=== PATIENT | female | born 1980 | race African-American/Black ===

== ENCOUNTER 2022-05-26 11:01 | Emergency (ER) | payer SELFPAY ==
--- NOTE | ~2022-05-26 | CT_ITS ---
EXAMINATION: CT abdomen pelvis w con INDICATION: Right lower quadrant pain, fever and chills TECHNIQUE: Computed tomographic images of the abdomen and pelvis were obtained after the administrati on of 100 cc of Omnipaque 350 intravenous contrast. The dose-length product (DLP) was 1122.92 mGy-cm. Automated exposure control and iterative reconstruction technique were employed. COMPARISON: None available FINDINGS: Minimal dependent atelectasis is present in the lung bases. The heart size is normal. There is a 10 mm cyst in the left hepatic lobe. The spleen, pancreas, gallbladder, and adrenal glands are normal. The kidneys are unremarkable. There is a complex cystic mass of the right adnexa measuring ap proximately 8.4 x 7.3 cm. A portion of the mass has a tubular configuration. There is inflammatory ch rona surrounding the mass and a small amount of adjacent fluid. There is marked enlargement of the ut erus which contains multiple fibroids. No pathologically enlarged abdominal or pelvic lymph nodes are identified. There is no free intraperitoneal gas or evidence of bowel obstruction. There is an umbil ical hernia containing fat. IMPRESSION: 1. Cystic right adnexal mass with apparent hydrosalpinx. Findings are consistent with tubo-ovarian ab scess. SUPERVISOR TAN ROOM evaluation is recommended. These findings and recommendations were discussed with Dexter Lynn APRN in the Emergency Department at 1539 hours on 05/26/2022. 2. Markedly enlarged uterus containing multiple fibroids. Reviewed, dictated and finalized at location A. IMPRESSION: 1. Cystic right adnexal mass with apparent hydrosalpinx. Findings are consisten t with tubo-ovarian abscess. SUPERVISOR TAN ROOM evaluation is recommended. These findings and recommendations were discussed with Dexter Lynn APRN in the Emergency Depa rtment at 1539 hours on 05/26/2022. 2. Markedly enlarged uterus containing multiple fibroids.
--- NOTE | ~2022-05-26 | XR_ITS ---
EXAMINATION: XR chest 2V 05/26/2022 12:31 INDICATION: Fever and cough PROCEDURE: 2 view chest COMPARISON: 03/07/2019 FINDINGS: The lungs are clear. The cardiomediastinal silhouette is within normal limits. There are no pleural effusions. There is no pneumothorax suspected. IMPRESSION: 1: NO ACUTE CARDIOPULMONARY DISEASE. Reviewed, dictated and finalized at location B.
[2022-05-26 11:19] VITALS: BP 142/63; PULSE 100; RESP 22; TEMP 37.9; O2SAT 100
--- NOTE | 2022-05-26 11:27 | ED.URI ---
HPI - URI/Sore Throat General Chief Complaint: Upper Respiratory Infection Stated Complaint: fatigue, body pain Time Seen by Provider: 05/26/22 11:15 History of Present Illness HPI Narrative: 42-year-old female history of anemia and thyroid disease presents emergency room for evaluation of low-grade fever body aches headache for 4 days. Patient states she is intermittently been taking Tylenol and ibuprofen for her body aches, which have temporarily resolved her symptoms. Patient denies shortness of breath, difficulty breathing, chest pain Related Data Allergies Allergy/AdvReac Type Severity Reaction Status Date / Time chloroquine Allergy Unknown Itching Unverified 05/26/22 11:34 Review of Systems Review of Systems: CONSTITUTIONAL: Reports fever EYES: Denies visual changes, redness, or discharge. ENT: Denies rhinorrhea, congestion, sore throat, or otalgia. CARDIOVASCULAR: Denies chest pain, palpitations, or edema. RESPIRATORY: Denies cough or dyspnea. GASTROINTESTINAL: Denies abdominal pain, nausea, vomiting, or diarrhea. GENITOURINARY: Denies dysuria or hematuria. SKIN: Denies rash or itching. MUSCULOSKELETAL: Reports body aches NEUROLOGIC: Denies headache, numbness, dizziness, or weakness. PSYCHIATRIC: Denies anxiety or depression. Exam Narrative: GENERAL: Ill-appearing, well-nourished, no physical limitations, and in no acute distress. HEAD: Normocephalic, atraumatic. EYES: Conjunctivae normal, PERRLA and EOMI. ENT: External nose normal, Nares clear, no rhinorrhea or epistaxis. Mucous membranes moist. Oropharynx without tonsillar hypertrophy exudate or other lesions. External ears normal, bilateral TMs normal bilaterally NECK: Supple. CHEST: Clear to auscultation. No respiratory distress. No wheezes rales or rhonchi. No tenderness. HEART: Regular rate and rhythm. No murmur heard. Normal peripheral pulses. ABD: Right lower quadrant tenderness. Negative heel strike. Positive psoas sign. EXTREMITIES: Normal range of motion. No edema. No clubbing or cyanosis SKIN: Warm, dry, no rash. No noted wounds NEURO: No focal deficits. Alert and oriented x3. MAEW. CN's II-XI intact bilaterally, normal gait PSYCH: Cooperative. Normal mood and affect. Course Course Emergency Course: 1600: Patient refused pelvic examination, stating she would rather be seen by her ICU TECH for this and she was also on her menstrual cycle. Vital Signs Vital signs: Vital Signs Temperature 37.9 C H 05/26/22 11:19 Pulse Rate 100 05/26/22 11:19 Respiratory Rate 22 H 05/26/22 11:19 Blood Pressure 142/63 H 05/26/22 11:19 Pulse Oximetry 100 05/26/22 11:19 Oxygen Delivery Room Air 05/26/22 11:19 Temperature 37.1 C 05/26/22 13:12 Pulse Rate 78 05/26/22 13:12 Respiratory Rate 18 05/26/22 13:12 Blood Pressure 138/62 05/26/22 13:12 Pulse Oximetry 99 05/26/22 13:12 Oxygen Delivery Room Air 05/26/22 11:19 MDM - URI/Sore Throat MDM Narrative Medical decision making narrative: 42-year-old female presented the emergency room with body aches and low-grade fever and some upper respiratory symptoms. On evaluation patient demonstrated pain to the right lower quadrant. CT scan showed a large tubo-ovarian abscess. On further review, patient states that she recently had a pelvic ultrasound as part of her initial work-up for IV therapy. I discussed the case with Dr. Rangel, he recommends 1 dose of IV antibiotics here and then to go home with antibiotics with close follow-up to the ICU TECH. Discussed treatment plan with patient, she was agreeable. Lab Data Result diagrams: 05/26/22 11:44 05/26/22 14:36 Labs: Lab Results 05/26/22 05/26/22 05/26/22 Range/Units 11:26 11:44 14:25 WBC 15.6 H (4.5-10.0) K/mm3 RBC 4.17 L (4.2-5.4) M/mm3 Hgb 8.9 L (12.0-15.0) g/dL Hct 30.4 L (37.0-47.0) % MCV 72.9 L (80-100) fl MCH 21.3 L (26-34) pg MCHC 29.3 L (32-36) g/dl R
[2022-05-26] MEDS: ACETAMINOPHEN 500 MG TABLET 1000 MG PO (11:32)
[2022-05-26 11:57] LABS: Basophils Percent Auto 0.2 % (0.2-1.2); Hematocrit 30.4 % (37.0-47.0); Hemoglobin 8.9 g/dL (12.0-15.0); Immature Granulocyte Absolute 0.08 K/mm3 (0.00-0.031); Immature Granulocyte Percent A 0.5 % (0-0.5); Lymphocytes Absolute Auto 1.53 K/mm3 (0.9-3.2); Lymphocytes Percent Auto 9.8 % (18.3-44.2); Mean Corpuscular HGB Conc 29.3 g/dl (32-36); Mean Corpuscular Hemoglobin 21.3 pg (26-34); Mean Corpuscular Volume 72.9 fl (80-100); Mean Platelet Volume 10.1 fl (7.4-10.4); Monocytes Absolute Auto 1.2 K/mm3 (0.1-0.6); Monocytes Percent Auto 7.8 % (2.6-8.5); Neutrophils Absolute Auto 12.7 K/mm3 (1.3-6.7); Neutrophils Percent Auto 81.7 % (45.5-73.1); Platelet Count Result 243 k/mm3 (150-375); Red Blood Count 4.17 M/mm3 (4.2-5.4); Red Cell Distribution Width 27.5 % (11.5-14.5); White Blood Count 15.6 K/mm3 (4.5-10.0)
[2022-05-26 12:10] LABS: SARS-CoV-2 RNA PCR Negative
[2022-05-26 12:17] LABS: Anisocytosis 2+ (NORMAL); Hypochromasia 2+ (NORMAL); Platelet Estimate Adequate (Adequate)
[2022-05-26 12:18] LABS: Poikilocytosis 1+ (NORMAL)
[2022-05-26 13:12] VITALS: BP 138/62; PULSE 78; RESP 18; TEMP 37.1; O2SAT 99
[2022-05-26] MEDS: SODIUM CHLORIDE 0.9% IV 1,000 ML 999 ML IV CONT (13:16)
[2022-05-26] MEDS: KETOROLAC 30 MG/ML VIAL (*BKC) IV PUSH (13:16)
[2022-05-26 14:44] LABS: Add Urine Microscopic? YES; Appearance Urine Clear (Clear); Bilirubin Urine Negative (Negative); Blood Urine 3+ (Negative); Glucose Urine UA Negative (Negative); Ketones Urine Negative (Negative); Leukocyte Esterase Ur 3+ LEU/UL (Negative); Nitrate Urine Negative (Negative); Protein Urine 2+ mg/dL (Negative); Specific Grav Ur <= 1.005 (1.001-1.035); Urobilinogen Urine 0.2 mg/dL (<2.0)
[2022-05-26 14:56] LABS: Alanine Aminotransferase 13 U/L (6-35); Albumin Level 4.3 g/dL (3.5-5.1); Alkaline Phosphatase 74 U/L (38-126); Anion Gap 11 mmol/L (8-16); Aspartate Amino Transferase 25 U/L (14-36); Bilirubin,Total 0.5 mg/dL (0.2-1.3); Blood Urea Nitrogen 5 mg/dL (7-17); Calcium 8.3 mg/dL (8.4-10.2); Carbon Dioxide 25 mmol/L (22-30); Chloride 102 mmol/L (98-107); Estimated CRCL calculation 118 ml/min; Estimated Glomerular Filt Rate > 60; Glucose 127 mg/dL (65-110); Potassium 3.2 mmol/L (3.4-5.0); Sodium 138 mmol/L (137-145)
[2022-05-26 14:57] LABS: Bacteria Urine 1+ /hpf; Mucus Urine Rare /lpf; RBC Urine >75 /hpf (0-2); WBC Urine >75 /hpf
[2022-05-26 15:01] LABS: Color Urine Light Red (Yellow)
[2022-05-26] MEDS: HYDROmorphone HCL INJ (*CRX) 1 MG/ML SYR 0.5 MG IV PUSH (16:02)
[2022-05-26 17:04] VITALS: BP 126/78; PULSE 77; RESP 18; TEMP 36.8; O2SAT 99
== END 2022-05-26 17:05 | disposition home or self-care (01) ==
PROVIDERS: Emergency Provider Nurse Practitioner Family
DX: N70.93 Salpingitis and oophoritis, unspecified (principal); Z20.822 Contact with and (suspected) exposure to COVID-19; D64.9 Anemia, unspecified; E07.9 Disorder of thyroid, unspecified; D25.9 Leiomyoma of uterus, unspecified
CPT/HCPCS: 36415; 71046; 74177; 80053; 81001; 81025; 83605; 85025; 87040; 87086; 96365; 96375; 99284; A9270; C9803; J0696; J1170; J1885; J7030; Q9967; U0003; U0005

== ENCOUNTER 2022-05-27 12:51 | Inpatient (IN) | payer SELFPAY ==
[2022-05-27] VITALS (8 sets, daily range): BP systolic 126–151; BP diastolic 67–81; PULSE 80–128; RESP 16–41; TEMP 37.2–38.8; O2SAT 97–100; BMI 34.1
[2022-05-27] MEDS: MORPHINE SULFATE (*CRX) 4 MG/ML INJ IV PUSH ×3 (13:28→21:50)
--- NOTE | 2022-05-27 13:28 | ED.ABDPAIN ---
HPI - Abdominal Pain General Chief Complaint: Abdominal Pain Stated Complaint: abd pain Time Seen by Provider: 05/27/22 13:07 History of Present Illness HPI narrative: 42-year-old female diagnosed with tubo-ovarian abscess return to the emergency room for ongoing abdominal pain and fever. Yesterday patient presented with abdominal pain no fever diagnosed with an ovarian abscess. Was given IV Rocephin and sent home with oral antibiotics and pain control. Patient states that she followed up with her ENT SURGEON this morning and was told that she needed to be admitted for IV antibiotics and pain control. Was told that there were no beds at [facility] so was instructed to come back to [place] for admission. Patient states she continues to have right lower quadrant abdominal pain and low-grade fevers. Related Data Allergies Allergy/AdvReac Type Severity Reaction Status Date / Time chloroquine Allergy Unknown Itching Verified 05/27/22 13:23 Review of Systems Review of Systems: CONSTITUTIONAL: Reports fever EYES: Denies visual changes, redness, or discharge. ENT: Denies rhinorrhea, congestion, sore throat, or otalgia. CARDIOVASCULAR: Denies chest pain, palpitations, or edema. RESPIRATORY: Denies cough or dyspnea. GASTROINTESTINAL: Reports abdominal pain GENITOURINARY: Denies dysuria or hematuria. SKIN: Denies rash or itching. MUSCULOSKELETAL: Denies back pain, joint pain, or myalgia. NEUROLOGIC: Denies headache, numbness, dizziness, or weakness. PSYCHIATRIC: Denies anxiety or depression. Exam Narrative: GENERAL: Well-appearing, well-nourished, no physical limitations, and in no acute distress. HEAD: Normocephalic, atraumatic. EYES: Conjunctivae normal, PERRLA and EOMI. CHEST: Clear to auscultation. No respiratory distress. No wheezes rales or rhonchi. No tenderness. HEART: Regular rate and rhythm. No murmur heard. Normal peripheral pulses. ABDOMEN: Soft, right lower quadrant tenderness, nondistended, normal active bowel sounds. BACK: No CVA tenderness EXTREMITIES: Normal range of motion. No edema. No clubbing or cyanosis SKIN: Warm, dry, no rash. No noted wounds NEURO: No focal deficits. Alert and oriented x3. MAEW. CN's II-XI intact bilaterally, normal gait PSYCH: Cooperative. Normal mood and affect. Course Vital Signs Vital signs: Vital Signs Temperature 38.2 C H 05/27/22 12:53 Pulse Rate 80 05/27/22 12:53 Respiratory Rate 16 05/27/22 12:53 Blood Pressure 151/81 H 05/27/22 12:53 Pulse Oximetry 100 05/27/22 12:53 Oxygen Delivery Room Air 05/27/22 12:53 Temperature 37.2 C 05/27/22 14:15 Pulse Rate 128 H 05/27/22 14:15 Respiratory Rate 41 H 05/27/22 14:15 Blood Pressure 134/67 05/27/22 14:15 Pulse Oximetry 100 05/27/22 14:15 Oxygen Delivery Room Air 05/27/22 12:53 MDM - Abdominal Pain Lab Data Result diagrams: 05/27/22 13:37 05/27/22 13:37 Discharge Plan Discharge Clinical Impression: Abscess, ovarian Patient Disposition: Still a Patient Condition: Stable Time of Disposition: 14:50
[2022-05-27] MEDS: ONDANSETRON INJ 4 MG/2 ML VIAL IV PUSH (13:29)
[2022-05-27] MEDS: SODIUM CHLORIDE 0.9% IV 1,000 ML 999 ML IV CONT (13:29)
[2022-05-27 13:46] LABS: Basophils Percent Auto 0.3 % (0.2-1.2); Eosinophils Absolute Auto 0.1 K/mm3 (0-0.3); Eosinophils Percent Auto 0.4 % (0-4.4); Hematocrit 28.2 % (37.0-47.0); Hemoglobin 8.3 g/dL (12.0-15.0); Immature Granulocyte Absolute 0.09 K/mm3 (0.00-0.031); Immature Granulocyte Percent A 0.7 % (0-0.5); Lymphocytes Absolute Auto 1.49 K/mm3 (0.9-3.2); Lymphocytes Percent Auto 11.2 % (18.3-44.2); Mean Corpuscular HGB Conc 29.4 g/dl (32-36); Mean Corpuscular Hemoglobin 21.7 pg (26-34); Mean Corpuscular Volume 73.6 fl (80-100); Mean Platelet Volume 10.3 fl (7.4-10.4); Monocytes Absolute Auto 0.9 K/mm3 (0.1-0.6); Neutrophils Absolute Auto 10.7 K/mm3 (1.3-6.7); Neutrophils Percent Auto 80.4 % (45.5-73.1); Platelet Count Result 233 k/mm3 (150-375); Red Blood Count 3.83 M/mm3 (4.2-5.4); Red Cell Distribution Width 27.4 % (11.5-14.5); White Blood Count 13.3 K/mm3 (4.5-10.0)
[2022-05-27 14:01] LABS: Alanine Aminotransferase 12 U/L (6-35); Albumin Level 3.9 g/dL (3.5-5.1); Alkaline Phosphatase 71 U/L (38-126); Anion Gap 8 mmol/L (8-16); Aspartate Amino Transferase 16 U/L (14-36); Bilirubin,Total 0.4 mg/dL (0.2-1.3); Blood Urea Nitrogen 4 mg/dL (7-17); Calcium 8.7 mg/dL (8.4-10.2); Carbon Dioxide 27 mmol/L (22-30); Chloride 97 mmol/L (98-107); Estimated CRCL calculation 104 ml/min; Estimated Glomerular Filt Rate > 60; Glucose 133 mg/dL (65-110); Potassium 3.2 mmol/L (3.4-5.0); Sodium 132 mmol/L (137-145)
[2022-05-27 14:09] LABS: Hypochromasia 1+ (NORMAL); Microcytosis 1+ (NORMAL); Platelet Estimate Adequate (Adequate)
[2022-05-27] MEDS: metroNIDAZOLE 250 MG TABLET 500 MG PO (14:51)
--- NOTE | 2022-05-27 15:38 | ADMGEN ---
This patient, Paulette Hess, was admitted to [facility] Surg Room 328-01. Patient/family oriented to hospital policies and general routines including ID bracelet, bed and alarms, visiting hours, pain management, procedures, bathroom and other care routines, personal items, smoking policy, room service/diet, and visiting hours. Information on how to activate the Rapid Response Team has been discussed. Patient/Family are encouraged to report perceived risks to care and to ask questions if they do not understand what they are told or what they should do.
[2022-05-27] MEDS: ACETAMINOPHEN 500 MG TABLET 1000 MG PO (21:39)
[2022-05-27] MEDS: DOXYCYCLINE 100 MG/NS 100 ML 100 MG/100 ML BAG IVPB (21:39)
[2022-05-27] MEDS: DEXTROSE 5%/0.45% SOD CHL 1,000 ML 100 ML IV CONT (21:40)
[2022-05-28] VITALS: PULSE 118; TEMP 36.4
[2022-05-28 05:02] VITALS: BP 133/71; PULSE 108; RESP 16; TEMP 36.6; O2SAT 99
[2022-05-28] MEDS: metroNIDAZOLE 500 MG/ISO 100ML 500 MG/100 ML BAG 100 MG IVPB ×2 (05:09→17:10)
[2022-05-28] MEDS: ACETAMINOPHEN 500 MG TABLET 1000 MG PO ×3 (05:09→17:18)
[2022-05-28] MEDS: DEXTROSE 5%/0.45% SOD CHL 1,000 ML 100 ML IV CONT ×2 (05:10→08:41)
[2022-05-28] MEDS: MORPHINE SULFATE (*CRX) 4 MG/ML INJ IV PUSH (05:16)
[2022-05-28 08:21] LABS: Hematocrit 25.8 % (37.0-47.0); Hemoglobin 7.8 g/dL (12.0-15.0); Immature Platelet Fraction Pct 4.6 % (0.9-11.2); Mean Corpuscular HGB Conc 30.2 g/dl (32-36); Mean Corpuscular Hemoglobin 21.8 pg (26-34); Mean Corpuscular Volume 72.1 fl (80-100); Mean Platelet Volume 10.8 fl (7.4-10.4); Platelet Count Result 216 k/mm3 (150-375); Red Blood Count 3.58 M/mm3 (4.2-5.4); Red Cell Distribution Width 27.3 % (11.5-14.5); White Blood Count 12.1 K/mm3 (4.5-10.0)
[2022-05-28 08:58] VITALS: PULSE 110; O2SAT 96
[2022-05-28] MEDS: DOXYCYCLINE 100 MG/NS 100 ML 100 MG/100 ML BAG IVPB ×2 (11:36→21:37)
--- NOTE | 2022-05-28 12:29 | PM.IMHP ---
H&P: HPI History of Present Illness Date/Time: 05/28/22 12:29 Chief Complaint: Pain and fever Narrative: 42 y/o nulligravida with LMP 05/21/22. She is seeing Dr. Viramontes at [facility] and Dr. Michel at [facility]. She was about to start an IVF cycle. She had a saline infusion ultrasound about three weeks ago, and has had gradually worsening pain since then. She developed more severe pain 2 days ago and has felt feverish. She was seen in the ED here on 05/26, found to be almost febrile (100.2F) withi a WBC 15.6K, and an 8 cm likely TOA on CT. She was felt to be stable and was given a dose of Rocephin, then sent home on Keflex, doxycycline and Flagyl. She went to see her BABATUNDE specialist yesterday. They told her they'd like to admit her, but that there was a waiting list of 40 people ahead of her at [facility]. She came back to [place] and was admitted through the ED. Her WBC yesterday had improved to 13.3K. She says she has had intermittent pain as well as a headache. The morphine / tylenol regimen has given intermittent relief. Last bm was 3 days ago. No new sexual partners. She had declined a pelvic exam on admission in the ED. Review of Systems Review of Systems: All systems reviewed & are unremarkable except as noted in HPI and below PMFSH Past Medical History Medical History Infertility Uterine fibroid Surgical History Surgical History (Updated 05/28/22 @ 12:38 by Hemanth Rangel MD) H/O: myomectomy History of appendectomy History of laparoscopy History of laparotomy Social History Social History Smoking status: Never smoker Alcohol intake: never Substance use: never Spiritual care concerns: No Meds Home Medications and Allergies Home Medications Medication Instructions Recorded Confirmed Type doxycycline monohydrate 100 mg 100 mg PO DAILY 14 days #14 caps 05/26/22 05/27/22 Rx capsule hydrocodone 5 mg-acetaminophen 325 1 tablet PO Q8H PRN pain #14 tabs 05/26/22 05/27/22 Rx mg tablet metronidazole 500 mg tablet 500 mg PO Q12H 14 days #28 tabs 05/26/22 05/27/22 Rx B Complex w-Vit C 1,000 mg PO DAILY 05/27/22 05/27/22 History calcium carb, gluconate-vit D3 2,000 mcg BYMOUTH DAILY 05/27/22 05/27/22 History folic acid 800 mg PO DAILY 05/27/22 05/27/22 History levothyroxine 25 mcg tablet 25 mcg PO DAILY 05/27/22 05/27/22 History Allergies Allergy/AdvReac Type Severity Reaction Status Date / Time chloroquine Allergy Unknown Itching Verified 05/27/22 15:11 shellfish derived Allergy Jittery Verified 05/27/22 15:12 Vital Signs Vital Signs - 24 hr 05/27/22 12:53 05/27/22 13:14 05/27/22 14:00 Temperature 38.2 C H Pulse Rate 80 127 H 123 H Respiratory Rate 16 38 H 23 H Blood Pressure 151/81 H 140/76 142/80 H Pulse Oximetry 100 100 100 Oxygen Delivery Room Air 05/27/22 13:40 05/27/22 14:15 05/27/22 14:54 Temperature 37.2 C 38.8 C H Pulse Rate 126 H 128 H 128 H Respiratory Rate 24 H 41 H 38 H Blood Pressure 134/67 135/77 Pulse Oximetry 100 100 100 Oxygen Delivery 05/27/22 17:15 05/27/22 21:53 05/28/22 00:00 Temperature 37.4 C 38.6 C H 36.4 C Pulse Rate 128 H 118 H Respiratory Rate 20 Blood Pressure 126/75 Pulse Oximetry 97 Oxygen Delivery 05/28/22 05:02 05/28/22 08:37 05/28/22 08:58 Temperature 36.6 C Pulse Rate 108 H 110 H Respiratory Rate 16 Blood Pressure 133/71 Pulse Oximetry 99 96 Oxygen Delivery Room Air Room Air Exam Const: Orientation/consciousness: patient oriented x3 Other: Well-developed, well-nourished female in no acute distress. Neck: Thyroid: thyroid normal Lymphatic: no lymphadenopathy noted (in neck, axilla or inguinal nodes) Resp: Effort & Inspection: normal respiratory effort Auscultation: clear to auscultation bilaterally Cardio: Rate: regular rate Rhythm: regular rhythm Heart sounds: S1 nor
[2022-05-28 14:00] VITALS: BP 132/86; PULSE 108; RESP 16; TEMP 36.4; O2SAT 99
[2022-05-28] MEDS: POLYSACCHARIDE IRON COMPLEX 150 MG CAPSULE PO (17:11)
[2022-05-28] MEDS: IBUPROFEN 600 MG TABLET PO (21:37)
[2022-05-28 22:00] VITALS: BP 125/86; PULSE 106; RESP 18; TEMP 36.6; O2SAT 100
[2022-05-29] MEDS: DEXTROSE 5%/0.45% SOD CHL 1,000 ML 100 ML IV CONT (05:26)
[2022-05-29] MEDS: metroNIDAZOLE 500 MG/ISO 100ML 500 MG/100 ML BAG 100 MG IVPB (05:50)
[2022-05-29] MEDS: ACETAMINOPHEN 500 MG TABLET 1000 MG PO (05:50)
[2022-05-29 06:00] VITALS: BP 118/64; PULSE 94; RESP 16; TEMP 36.6; O2SAT 100
[2022-05-29 07:13] LABS: Basophils Percent Auto 0.4 % (0.2-1.2); Eosinophils Absolute Auto 0.1 K/mm3 (0-0.3); Hematocrit 25.6 % (37.0-47.0); Hemoglobin 7.4 g/dL (12.0-15.0); Immature Granulocyte Absolute 0.04 K/mm3 (0.00-0.031); Immature Granulocyte Percent A 0.5 % (0-0.5); Immature Platelet Fraction Pct 4.4 % (0.9-11.2); Lymphocytes Absolute Auto 1.15 K/mm3 (0.9-3.2); Lymphocytes Percent Auto 13.9 % (18.3-44.2); Mean Corpuscular HGB Conc 28.9 g/dl (32-36); Mean Corpuscular Volume 72.5 fl (80-100); Mean Platelet Volume 10.1 fl (7.4-10.4); Monocytes Absolute Auto 0.7 K/mm3 (0.1-0.6); Monocytes Percent Auto 8.5 % (2.6-8.5); Neutrophils Absolute Auto 6.3 K/mm3 (1.3-6.7); Neutrophils Percent Auto 75.7 % (45.5-73.1); Platelet Count Result 237 k/mm3 (150-375); Red Blood Count 3.53 M/mm3 (4.2-5.4); Red Cell Distribution Width 27.6 % (11.5-14.5); White Blood Count 8.3 K/mm3 (4.5-10.0)
[2022-05-29] MEDS: POLYSACCHARIDE IRON COMPLEX 150 MG CAPSULE PO (08:15)
[2022-05-29 08:29] LABS: Anisocytosis 1+ (NORMAL); Hypochromasia 1+ (NORMAL); Ovalocytes 1+ (NORMAL); Platelet Estimate Adequate (Adequate)
--- NOTE | 2022-05-29 09:34 | PM.GYNPNOP ---
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 She is afebrile, pain is decreasing, and WBC has normalized. P: Home to finish a total of 14 days of antibiotics. Fe supplementation and pain control with Percocet. F/u with Dr. Viramontes in 1-2 weeks, or with me in 2 weeks if she prefers. Time Spent With Patient Time with patient: less than 15 minutes RETURNED TELEPHONE EQUIPMENT APPRAISER- PN:Subj Post-Op Subjective Date/time seen: 05/29/22 09:34 Interval history: She feels much better today. No fevers. Pain still present, but improved. She would like to clarify that she did not decline a pelvic exam in the ED. She says she was told the exam might be less helpful since she was bleeding. She passed a couple blood clots yesterday and received a dose of TXA, but has had no bleeding since. She had a bm yesterday. Exam Narrative: AVSS I/O OK ABD soft, much less tender. No guarding or rebound tenderness. EXT nontender RETURNED TELEPHONE EQUIPMENT APPRAISER - PN: Obj Data Vital Signs Vital Signs: Vital Signs - 24 hr 05/28/22 14:00 05/28/22 22:00 05/29/22 06:00 Temperature 36.4 C L 36.6 C 36.6 C Pulse Rate 108 H 106 H 94 Respiratory Rate 16 18 16 Blood Pressure 132/86 125/86 118/64 Pulse Oximetry 99 100 100 Oxygen Delivery 05/29/22 08:00 Temperature Pulse Rate Respiratory Rate Blood Pressure Pulse Oximetry Oxygen Delivery Room Air Intake/Output Intake/Output: Intake & Output 05/26/22 05/27/22 05/28/22 05/29/22 23:59 23:59 23:59 23:59 Intake Total 1310 7130 200 Balance 1310 7130 200 Meds/Results Medications: Active Medications Generic Name Dose Route Start Last Admin Trade Name Freq PRN Reason Stop Dose Admin Acetaminophen 1,000 mg 05/27/22 21:09 05/29/22 05:50 Acetaminophen 500 Mg Tablet PO 1,000 mg Q6H PRN Administration Mild Pain (1-3) or Fever Bisacodyl 10 mg 05/28/22 12:45 Bisacodyl 10 Mg Suppository RECTAL QAM PRN Constipation Famotidine 20 mg 05/27/22 21:12 Famotidine 20 Mg Tablet PO BID PRN Heartburn Ceftriaxone Sodium/Dextrose 1 gm in 50 mls @ 100 mls/hr 05/28/22 14:00 05/28/22 13:40 Rocephin 1 Gm/D5w 50 Ml IVPB Infused Q24H GAYE Infusion Metronidazole 500 mg in 100 mls @ 100 mls/hr 05/28/22 06:00 05/29/22 05:50 Flagyl 500 Mg/Iso Soln 100 Ml IVPB 100 mls/hr Q12H GAYE Administration Doxycycline Hyclate 100 mg in 100 mls @ 100 mls/hr 05/27/22 22:00 05/28/22 21:37 Vibramycin 100 Mg/Ns 100 Ml IVPB 100 mls/hr Q12H GAYE Administration Dextrose/Sodium Chloride 1,000 mls @ 100 mls/hr 05/27/22 21:15 05/29/22 05:26 Dextrose 5% Sodium Chloride 0.45% IV CONT 100 mls/hr .Q10H GAYE Administration Ibuprofen 600 mg 05/28/22 12:43 05/28/22 21:37 Ibuprofen 600 Mg Tablet PO 600 mg Q6H PRN Administration Cramping Ondansetron HCl 4 mg 05/27/22 13:24 Ondansetron Inj 4 Mg/2 Ml Vial IV PUSH Q4H PRN Nausea Oxycodone/Acetaminophen 1 tablet 05/28/22 12:43 Oxycodone/Acetaminophen (*Crx) 5-325 Mg Tablet PO Q4-6H PRN Pain Rated 6 or Greater Polysaccharide Iron Complex 150 mg 05/28/22 17:00 05/29/22 08:15 Polysaccharide Iron Complex 150 Mg Capsule PO 150 mg BIDWM GAYE Administration Labs CBC & Chem 7: 05/29/22 06:21 05/27/22 13:37 Labs: Laboratory Results - last 24 hr 05/29/22 06:21 WBC 8.3 RBC 3.53 L Hgb 7.4 L Hct 25.6 L MCV 72.5 L MCH 21.0 L MCHC 28.9 L RDW 27.6 H Plt Count 237 MPV 10.1 Immature Gran % (Auto) 0.5 Neut % (Auto) 75.7 H Lymph % (Auto) 13.9 L Gilmer % (Auto) 8.5 Eos % (Auto) 1.0 Baso % (Auto) 0.4 Lymph # (Auto) 1.15 Gilmer # (Auto) 0.7 H Eos # (Auto) 0.1 Baso # (Auto) 0.0 Abs Immat Gran (auto) 0.04 H Absolute Neuts (auto) 6.3 Absolute Nucleated RBC 0.0 Nucleated RBC % 0.0 P
[2022-05-29] MEDS: DOXYCYCLINE 100 MG/NS 100 ML 100 MG/100 ML BAG IVPB (10:05)
--- NOTE | 2022-06-23 11:43 | P.DS_ITS ---
DS: Admitting Diagnosis Discharge Date 05/29/22 Admitting Diagnosis Right sided tuboovarian abscess DS: Discharge Diagnosis Discharge Diagnosis (1) Tubo-ovarian abscess: Code(s): N70.93 - Salpingitis and oophoritis, unspecified Status: Acute DS: Summary Hospital Course Hospital Course: Admitted to the hospital for analgesics and IV antibiotics. Pain improved, temp improved, WBC normalized, and she was sent home to finish out an antibiotic course. Discharge Plan Discharge Attending physician on discharge: Hemanth Rangel Discharging Clinician: Hemanth Rangel Patient Disposition: Home, Self-Care Activity: pelvic rest Diet: regular Discharge Instructions: Call or return if temperature above 100.4? F, increased abdominal pain, increased vaginal bleeding or any new problems. Stand Alone Forms: General Discharge Information Follow-up/Referrals: Hemanth Rangel MD [Physician] - 2 Weeks (See Dr. Viramontes or Dr. Michel in 1-2 weeks; or see me in 2 weeks if preferred.) Discharge Medications: New cephalexin 500 mg capsule 500 mg PO Q12H 10 Days Qty: 20 0RF Niferex (Sumalate-Quatrefolic) 150 mg iron- 60 mg-1 mg tablet 1 tablet PO DAILY Qty: 30 0RF oxycodone-acetaminophen [Percocet] 5-325 mg tablet 1 - 2 tablet PO Q6H PRN (Reason: pain) Qty: 30 0RF Continued metronidazole 500 mg tablet 500 mg PO Q12H 14 Days Qty: 28 0RF doxycycline monohydrate 100 mg capsule 100 mg PO DAILY 14 Days Qty: 14 0RF levothyroxine 25 mcg tablet 25 mcg PO DAILY B Complex w-Vit C 1,000 mg PO DAILY folic acid 800 mg PO DAILY calcium carb, gluconate-vit D3 2,000 mcg BYMOUTH DAILY Discontinued hydrocodone-acetaminophen 5-325 mg tablet 1 tablet PO Q8H PRN (Reason: pain) Qty: 14 0RF Date of admission: 05/28/22 15:59 Primary Care Provider: PHYSICIAN,CLEAN ENERGY POLICY ANALYST Admitting Provider: Hemanth Rangel Attending physician on admission: Hemanth Rangel Condition: Stable
== END 2022-05-29 12:16 | disposition home or self-care (01) | DRG 531 ==
LOC: ANHED 13:30 → ANH3MEDSUR 14:16
PROVIDERS: Admitting Provider Obstetrics & Gynecology; Emergency Provider Nurse Practitioner Family; Visit Provider Obstetrics & Gynecology
DX: N70.03 Acute salpingitis and oophoritis (principal); T50.3X5A Adverse effect of electrolytic, caloric and water-balance agents, initial encounter; Z90.49 Acquired absence of other specified parts of digestive tract
CPT/HCPCS: 36415; 80053; 83605; 85025; 85027; 85055; 96361; 96365; 96367; 96375; 96376; 99285; A9270; G0378; J0696; J2270; J2405; J7030

== ENCOUNTER 2023-12-05 18:24 | Emergency (ER) | payer OTHER, SELFPAY ==
[2023-12-05 18:27] VITALS: BP 144/78; PULSE 99; RESP 18; TEMP 37.3; O2SAT 100
[2023-12-05 19:13] LABS: Influenza A QL RT-PCR Negative (Negative); Influenza B QL RT-PCR Negative (Negative); RSV RNA, RT-PCR Negative (Negative); SARS-CoV-2 RNA PCR Positive (Negative)
--- NOTE | 2023-12-05 20:29 | ED.URI ---
HPI - URI/Sore Throat General Chief Complaint: Upper Respiratory Infection Stated Complaint: h/a. body aches, nasal congestion Time Seen by Provider: 12/05/23 20:05 History of Present Illness HPI Narrative: Patient is a 43-year-old female presenting with headache, body aches, nasal congestion. States that her has been recently tested positive for COVID-19. For the last several days she has had diffuse body aches. States that her bones feel like they hurt all over. No nausea or vomiting. No SOB or CP. Mild cough. No leg swelling. Related Data Home Medications Medication Instructions Recorded Confirmed B Complex w-Vit C 1,000 mg PO DAILY 05/27/22 05/27/22 calcium carb, gluconate-vit D3 2,000 mcg BYMOUTH DAILY 05/27/22 05/27/22 folic acid 800 mg PO DAILY 05/27/22 05/27/22 levothyroxine 25 mcg tablet 25 mcg PO DAILY 05/27/22 05/27/22 Allergies Allergy/AdvReac Type Severity Reaction Status Date / Time chloroquine Allergy Unknown Itching Verified 12/05/23 18:25 shellfish derived Allergy Jittery Verified 12/05/23 18:25 Review of Systems Review of Systems: All systems reviewed & are unremarkable except as noted in HPI and below PMFSH Past Medical History Medical History Infertility Uterine fibroid Surgical History Surgical History H/O: myomectomy History of appendectomy History of laparoscopy History of laparotomy Social History Social History Smoking status: Never smoker Alcohol intake: never Substance use: never Spiritual care concerns: No Exam Narrative: GENERAL: Nontoxic, no acute distress, pleasant and cooperative HEAD: Normocephalic, atraumatic. EYES: PERRLA and EOMI. ENT: +nasal congestion NECK: Supple. CHEST: Clear to auscultation. No respiratory distress. HEART: Regular rate and rhythm EXTREMITIES: Normal range of motion. No edema. SKIN: Warm, dry, no rash. NEURO: No focal deficits. Alert and oriented x3. PSYCH: Normal mood and affect. Course Vital Signs Vital signs: Vital Signs Temperature 99.1 F 12/05/23 18:27 Pulse Rate 99 12/05/23 18:27 Respiratory Rate 18 12/05/23 18:27 Blood Pressure 144/78 H 12/05/23 18:27 Pulse Oximetry 100 12/05/23 18:27 Temperature 99.1 F 12/05/23 18:27 Pulse Rate 99 12/05/23 18:27 Respiratory Rate 18 12/05/23 18:27 Blood Pressure 144/78 H 12/05/23 18:27 Pulse Oximetry 100 12/05/23 18:27 Oxygen Delivery Room Air 12/05/23 20:42 MDM - URI/Sore Throat MDM Narrative Medical decision making narrative: 43-year-old female presenting with body aches, headache, nasal congestion. Vitals are within normal limits. Exam remarkable for the above. Patient is positive for COVID-19. Feel she is safe for outpatient management. Advised Tylenol and ibuprofen for pain and fevers. Discussed appropriate supportive care and PCP follow-up. Appropriate return precautions given. Patient is agreeable this plan. Discharged in stable condition. Differential Diagnosis Differential diagnosis: Likely upper respiratory infection, viral infection and influenza Medical Records Attestation: I reviewed the patient's medical records. Lab Data Attestation: I reviewed the patient's lab results. Labs: Lab Results 12/05/23 Range/Units 18:32 Influenza A (RT-PCR) Negative (Negative) Influenza B (RT-PCR) Negative (Negative) RSV (RT-PCR) Negative (Negative) SARS-CoV-2 RNA (RT-PCR) Positive A (Negative) Critical Care Time Critical Care Time Critical Care Time: No Discharge Plan Discharge Clinical Impression: COVID-19 Patient Disposition: Home, Self-Care Condition: Stable Instructions: Antibiotic Form, How to Recover from COVID-19 at Home (ED) Additional Instructions: You tested positive for COVID-19 t
[2023-12-05] MEDS: IBUPROFEN 600 MG TABLET PO (20:43)
[2023-12-05] MEDS: ACETAMINOPHEN 500 MG TABLET 1000 MG PO (20:43)
== END 2023-12-05 20:45 | disposition home or self-care (01) ==
LOC: ANHED 20:50
PROVIDERS: Emergency Medicine; Emergency Provider Emergency Medicine
DX: U07.1 COVID-19 (principal)
CPT/HCPCS: 87637; 99283; A9270

== ENCOUNTER 2024-02-21 22:26 | Emergency (ER) | payer OTHER, SELFPAY ==
--- NOTE | ~2024-02-21 | CT_ITS ---
CT of the Abdomen and Pelvis: Indication: Abdominal pain Technique: 2.5 mm axial scans were obtained through the abdomen and pelvis following intravenous adm inistration of 100 cc of Omnipaque 350. Dose reduction technique was used on this scan by utilizing a utomated exposure control and iterative reconstruction technique. The dose-length product (DLP) was 8 00.17 mGy-cm. COMPARISON: 05/26/2022 Findings: Scans through the lung bases are unremarkable. The liver, spleen, pancreas, gallbladder, adrenals and kidneys are within normal limits. No evidence of aortic aneurysm. No lymphadenopathy. No bowel obstruction or bowel wall thickening. There is no evidence to suggest acute appendicitis. Images through the pelvis were performed. Urinary bladder unremarkable. Markedly enlarged multi fibro id uterus is present, measuring approximately 16.5 x 11.3 x 15.1 cm in overall extent. There are prob ably 2 ovarian cysts present in the left ovary, measuring measuring 3.8 cm and 2.9 cm in size respect ively. No ascites. Impression: Enlarged multi fibroid uterus, as detailed above. 3.8 cm and 2.9 cm left ovarian cyst. Reviewed, dictated and finalized at location . Impression: Enlarged multi fibroid uterus, as detailed above. 3.8 cm and 2.9 cm left ovaria n cyst.
[2024-02-21 22:45] VITALS: BP 125/75; PULSE 84; RESP 18; TEMP 36.6; O2SAT 100
[2024-02-22 01:59] LABS: Appearance Urine Clear (Clear); Bilirubin Urine Negative (Negative); Blood Urine Negative (Negative); Color Urine Yellow (Yellow); Glucose Urine UA Negative (Negative); Ketones Urine Negative (Negative); Leukocyte Esterase Ur Negative LEU/UL (Negative); Nitrate Urine Negative (Negative); Protein Urine Negative (Negative); Specific Grav Ur 1.005 (1.001-1.035); Urobilinogen Urine 0.2 mg/dL (<2.0); pH Urine 6.5 (5.0-9.0)
[2024-02-22 02:01] LABS: Add Urine Microscopic? NO
[2024-02-22] MEDS: KETOROLAC 15 MG/ML VIAL (*BKC) IV PUSH (02:03)
[2024-02-22 02:20] LABS: Alanine Aminotransferase 17 U/L (6-35); Albumin Level 4.8 g/dL (3.5-5.1); Alkaline Phosphatase 71 U/L (38-126); Anion Gap 8 mmol/L (4-12); Aspartate Amino Transferase 28 U/L (14-36); Bilirubin,Total 0.5 mg/dL (0.2-1.3); Blood Urea Nitrogen 10 mg/dL (7-17); Calcium 10.4 mg/dL (8.4-10.2); Carbon Dioxide 25 mmol/L (22-30); Chloride 105 mmol/L (98-107); Estimated CRCL calculation 129 ml/min; Estimated Glomerular Filt Rate > 60; Glucose 89 mg/dL (65-110); Lipase 72 U/L (23-300); Potassium 4.3 mmol/L (3.4-5.0); Sodium 138 mmol/L (137-145)
[2024-02-22 02:42] LABS: Basophils Percent Auto 0.4 % (0.2-1.2); Eosinophils Absolute Auto 0.2 K/mm3 (0-0.3); Eosinophils Percent Auto 2.1 % (0-4.4); Hematocrit 36.4 % (37.0-47.0); Hemoglobin 11.2 g/dL (12.0-15.0); Immature Granulocyte Absolute 0.02 K/mm3 (0.00-0.031); Immature Granulocyte Percent A 0.2 % (0-0.5); Lymphocytes Absolute Auto 2.57 K/mm3 (0.9-3.2); Lymphocytes Percent Auto 31.9 % (18.3-44.2); Mean Corpuscular HGB Conc 30.8 g/dl (32-36); Mean Corpuscular Hemoglobin 26.7 pg (26-34); Mean Corpuscular Volume 86.7 fl (80-100); Monocytes Absolute Auto 0.6 K/mm3 (0.1-0.6); Monocytes Percent Auto 7.6 % (2.6-8.5); Neutrophils Absolute Auto 4.7 K/mm3 (1.3-6.7); Neutrophils Percent Auto 57.8 % (45.5-73.1); Platelet Count Result 237 k/mm3 (150-375); Red Cell Distribution Width 14.5 % (11.5-14.5); White Blood Count 8.1 K/mm3 (4.5-10.0)
[2024-02-22 02:51] VITALS: BP 125/73; PULSE 88; RESP 17; O2SAT 100
[2024-02-22 04:17] VITALS: BP 123/78; PULSE 88; RESP 16; O2SAT 100
--- NOTE | 2024-02-22 04:52 | ED.GENADULT ---
HPI - General Adult General Chief complaint: Abdominal Pain Stated complaint: abd pain Time Seen by Provider: 02/22/24 01:03 History of Present Illness HPI narrative: This is a 43-year-old female presenting ED with a chief complaint of abdominal pain. Patient been fasting throughout the day for jainism reasons. She then developed severe pain in her right upper quadrant. It was a sharp stabbing pain. Nonradiating. She has experienced pain like this in the past but not this severe. She has never sought medical attention for it. She denies fevers chills nausea vomiting or diarrhea. She still has a gallbladder. Patient has a history of fibroids. Related Data Home Medications Medication Instructions Recorded Confirmed B Complex w-Vit C 1,000 mg PO DAILY 05/27/22 05/27/22 calcium carb, gluconate-vit D3 2,000 mcg BYMOUTH DAILY 05/27/22 05/27/22 folic acid 800 mg PO DAILY 05/27/22 05/27/22 levothyroxine 25 mcg tablet 25 mcg PO DAILY 05/27/22 05/27/22 Allergies Allergy/AdvReac Type Severity Reaction Status Date / Time chloroquine Allergy Unknown Itching Verified 02/22/24 01:44 shellfish derived Allergy Jittery Verified 02/22/24 01:44 PMF Past Medical History Medical History Infertility Uterine fibroid Surgical History Surgical History H/O: myomectomy History of appendectomy History of laparoscopy History of laparotomy Social History Social History Smoking status: Never smoker Alcohol intake: never Substance use: never Spiritual care concerns: No Exam Narrative: APPEARANCE: No apparent distress. Head: atraumatic. EYES: EOMI, NOSE: Atraumatic NECK: Trachea midline RESPIRATORY: No increased rate of breathing CARDIOVASCULAR: RRR, ABDOMINAL: Palpable mass in the patient's lower abdomen, the rest the abdomen is soft nontender no guarding or rebound MUSCULOSKELETAl: No obvious deformities NEURO: Alert. Moving 4/4 extremities SKIN:: Warm, dry. Normal color PSYCHIATRIC: Normal affect Course Vital Signs Vital signs: Vital Signs Temperature 98 F 02/21/24 22:45 Pulse Rate 84 02/21/24 22:45 Respiratory Rate 18 02/21/24 22:45 Blood Pressure 125/75 02/21/24 22:45 Pulse Oximetry 100 02/21/24 22:45 Oxygen Delivery Room Air 02/21/24 22:45 Temperature 98 F 02/21/24 22:45 Pulse Rate 76 02/22/24 06:38 Respiratory Rate 16 02/22/24 06:38 Blood Pressure 112/77 02/22/24 06:38 Pulse Oximetry 100 02/22/24 06:38 Oxygen Delivery Room Air 02/21/24 22:45 Medical Decision Making MDM Narrative Medical decision making narrative: -Course: 43-year-old female presenting with right upper quadrant abdominal pain. Laboratory studies within normal limits. CT abdomen pelvis showed a large fibroid uterus but no gallbladder findings. On re-evaluation patient is resting comfortably. She has been pain-free for most of her stay. Patient will be discharged with the presumptive diagnosis of biliary colic. Patient given referrals to surgery, OBGYN and primary care. -DDX includes but is not limited to: Gastritis, biliary colic, colitis, uterine cramps, ovarian cyst -Independent interpretation of studies: labs reviewed within normal limits. Urine not indicative infection -Interventions: Toradol -Shared decision making / Disposition: discharged Vital Signs Vital Signs: Vital Signs Temperature 98 F 02/21/24 22:45 Pulse Rate 84 02/21/24 22:45 Respiratory Rate 18 02/21/24 22:45 Blood Pressure 125/75 02/21/24 22:45 Pulse Oximetry 100 02/21/24 22:45 Oxygen Delivery Room Air 02/21/24 22:45 Temperature 98 F 02/21/24 22:45 Pulse Rate 76 02/22/24 06:38 Respiratory Rate 16 02/22/24 06:38 Blood Pressure 112/77 02/22/24 06:38 Pulse Oximetry 100 02/22/24 06:38 Ox
[2024-02-22 05:54] VITALS: BP 119/81; PULSE 86; RESP 17; O2SAT 97
[2024-02-22 06:38] VITALS: BP 112/77; PULSE 76; RESP 16; O2SAT 100
== END 2024-02-22 06:58 | disposition home or self-care (01) ==
PROVIDERS: Physician Assistant; Emergency Provider Emergency Medicine
DX: R10.11 Right upper quadrant pain (principal); D25.9 Leiomyoma of uterus, unspecified; K80.50 Calculus of bile duct without cholangitis or cholecystitis without obstruction; N83.202 Unspecified ovarian cyst, left side
CPT/HCPCS: 36415; 74177; 80053; 81003; 81025; 83690; 85025; 96374; 99284; J1885; Q9967

== ENCOUNTER 2024-07-05 12:00 | Outpatient (CLI) | payer OTHER, SELFPAY ==
--- NOTE | ~2024-07-05 | US_ITS ---
EXAMINATION: US soft tissue head and neck DATE: 07/05/2024 12:35 INDICATION: Mass of neck. TECHNIQUE: Multiple grayscale and Doppler ultrasound images of the head and neck were obtained. COMPARISON: None FINDINGS: There is normal subcutaneous fat in the patient's area of concern in the left neck. IMPRESSION: 1. No abnormal neck mass or lymphadenopathy. Reviewed, dictated and finalized at location A.
== END 2024-07-05 12:01 | disposition home or self-care (01) ==
LOC: ANHIMG 12:01
PROVIDERS: PCP Physician Assistant; Visit Provider Physician Assistant
DX: R22.1 Localized swelling, mass and lump, neck (principal)
CPT/HCPCS: 76536

== ENCOUNTER 2024-07-21 22:59 | Emergency (ER) | payer OTHER, SELFPAY ==
--- NOTE | ~2024-07-21 | CT_ITS ---
Clinical Indication: Chest pain, abdominal pain CT Scan of the Chest, Abdomen, and Pelvis without Contrast: Technique: Contiguous sections were acquired throughout the chest, abdomen, and pelvis without IV con trast administration. Dose reduction technique was used on this scan by utilizing automated exposure control and iterative reconstruction technique. The dose-length product (DLP) was 1550.55 mGy-cm. Comparison: 02/22/2024 Findings: There is no evidence of any significant mediastinal, hilar or axillary lymphadenopathy. The mediastin al soft tissues appear normal. There is no evidence of pleural or pericardial effusion. The lungs are clear. No pulmonary nodules or infiltrates are noted. The liver, spleen, pancreas, gallbladder, adrenals and kidneys are within normal limits. No evidence of aortic aneurysm. No lymphadenopathy. No bowel obstruction or bowel wall thickening. There is no evidence to suggest acute appendicitis. Urinary bladder is unremarkable. Markedly enlarged multi fibroid uterus is similar to prior exam. No ascites.. Impression: Markedly enlarged multi fibroid uterus is similar to prior exam. No acute abnormality identified. Reviewed, dictated and finalized at location . Impression: Markedly enlarged multi fibroid uterus is similar to prior exam. No acute abnormality identified.
--- NOTE | ~2024-07-21 | XR_ITS ---
Clinical Indication: Chest pain PA and lateral views of the chest: Comparison: 05/26/2022 Findings: The lungs are clear, without evidence of focal consolidation or pleural effusion. Cardiome diastinal silhouette is within normal limits. Bones and soft tissues are unremarkable. Impression: Normal chest. Reviewed, dictated and finalized at location . Impression: Normal chest.
[2024-07-21 23:06] VITALS: BP 140/84; PULSE 81; RESP 16; TEMP 36.3; O2SAT 99
--- NOTE | 2024-07-21 23:12 | ECG_ITS ---
Test Date: 2024-07-21 23:17:11 Measurements Intervals [place] Rate: 82 P: 52 DE: 165 QRS: 26 QRSD: 81 T: 39 QT: 359 QTc: 421 Interpretive Statements SINUS RHYTHM NORMAL ELECTROCARDIOGRAM No previous ECG available for comparison Electronically Signed On 07-22-2024 12:31:32 CDT by Sohan Mccallum M.D.
[2024-07-21 23:59] VITALS: O2SAT 100
[2024-07-22 00:05] LABS: Basophils Percent Auto 0.4 % (0.2-1.2); Eosinophils Absolute Auto 0.1 K/mm3 (0-0.3); Eosinophils Percent Auto 2.3 % (0-4.4); Hematocrit 34.9 % (37.0-47.0); Immature Granulocyte Absolute 0.01 K/mm3 (0.00-0.031); Immature Granulocyte Percent A 0.2 % (0-0.5); Lymphocytes Absolute Auto 1.99 K/mm3 (0.9-3.2); Lymphocytes Percent Auto 38.3 % (18.3-44.2); Mean Corpuscular HGB Conc 31.5 g/dl (32-36); Mean Corpuscular Hemoglobin 27.3 pg (26-34); Mean Corpuscular Volume 86.6 fl (80-100); Mean Platelet Volume 10.5 fl (7.4-10.4); Monocytes Absolute Auto 0.6 K/mm3 (0.1-0.6); Monocytes Percent Auto 11.4 % (2.6-8.5); Neutrophils Absolute Auto 2.5 K/mm3 (1.3-6.7); Neutrophils Percent Auto 47.4 % (45.5-73.1); Platelet Count Result 230 k/mm3 (150-375); Red Blood Count 4.03 M/mm3 (4.2-5.4); Red Cell Distribution Width 15.9 % (11.5-14.5); White Blood Count 5.2 K/mm3 (4.5-10.0)
[2024-07-22 00:13] LABS: INR 0.9; Prothrombin Time 12.9 Seconds (11.1-14.7)
[2024-07-22 00:14] LABS: Partial Thromboplastin Time 28.9 Seconds (22.3-36.8)
[2024-07-22 00:15] LABS: Alanine Aminotransferase 15 U/L (6-35); Albumin Level 4.3 g/dL (3.5-5.1); Alkaline Phosphatase 79 U/L (38-126); Anion Gap 7 mmol/L (4-12); Aspartate Amino Transferase 19 U/L (14-36); Bilirubin,Total 0.3 mg/dL (0.2-1.3); Blood Urea Nitrogen 9 mg/dL (7-17); Calcium 9.2 mg/dL (8.4-10.2); Carbon Dioxide 28 mmol/L (22-30); Chloride 101 mmol/L (98-107); Estimated CRCL calculation 131 ml/min; Estimated Glomerular Filt Rate > 60; Glucose 88 mg/dL (65-110); Lipase 90 U/L (23-300); Potassium 3.8 mmol/L (3.4-5.0); Sodium 136 mmol/L (137-145)
[2024-07-22 00:24] LABS: Troponin I < 0.012 ng/mL (0.000-0.034)
--- NOTE | 2024-07-22 00:24 | ED_ITS ---
HPI - Chest Pain General Chief Complaint: Chest Pain <Muna Avendaño APRN - Last Filed: 07/22/24 02:27> Stated Complaint: epigastric pain <Muna Avendaño APRN - Last Filed: 07/22/24 02:27> Time Seen by Provider: 07/21/24 23:32 <Muna Avendaño APRN - Last Filed: 07/22/24 02:27> History of Present Illness HPI narrative: Patient is a 44-year-old female who presents to the ER with 3 days of chest pain. She reports her pain is on the left side of her chest under her breast and radiates to her left upper back. Patient also endorses pain on her left lower back and bilateral lower abdominal quadrant pain. She reports her urine flow has decreased but has no other urinary symptoms. Patient reports she has a history appendectomy and uterine fibroids. She denies shortness of breath, other signs of illness, or numbness/ tingling. Patient reports her last bowel movement was this morning. <Muna Avendaño APRN - Last Filed: 07/22/24 02:27> Related Data Home Medications: Home Medications Medication Instructions Recorded Confirmed B Complex w-Vit C 1,000 mg PO DAILY 05/27/22 05/27/22 calcium carb, gluconate-vit D3 2,000 mcg BYMOUTH DAILY 05/27/22 05/27/22 folic acid 800 mg PO DAILY 05/27/22 05/27/22 levothyroxine 25 mcg tablet 25 mcg PO DAILY 05/27/22 05/27/22 <Muna Avendaño APRN - Last Filed: 07/22/24 02:27> Allergies/Adverse Reactions: Allergies Allergy/AdvReac Type Severity Reaction Status Date / Time chloroquine Allergy Unknown Itching Verified 07/22/24 05:19 shellfish derived Allergy Jittery Verified 07/22/24 05:19 <Muna Avendaño APRN - Last Filed: 07/22/24 02:27> Review of Systems Review of Systems: All systems reviewed & are unremarkable except as noted in HPI and below <Muna Avendaño APRN - Last Filed: 07/22/24 02:27> PMFSH Past Medical History Medical History: Medical History Infertility Uterine fibroid <Muna Avendaño APRN - Last Filed: 07/22/24 02:27> Surgical History Surgical History: Surgical History H/O: myomectomy History of appendectomy History of laparoscopy History of laparotomy <Muna Avendaño APRN - Last Filed: 07/22/24 02:27> Social History Social History: Social History Smoking status: Never smoker Alcohol intake: never Substance use: never Spiritual care concerns: No <Muna Avendaño APRN - Last Filed: 07/22/24 02:27> Exam Narrative: GENERAL: Well appearing, well-nourished, non-toxic, in no acute distress. HEAD: Normocephalic, atraumatic. NECK: Supple. No adenopathy, no masses. RESPIRATORY: Airway patent, respirations nonlabored. Clear to auscultation bilat erally, no rales, rhonchi, wheezing. CARDIOVASCULAR: Regular rate and rhythm without murmurs, rubs, or gallops. Peripheral pulses 2+ and equal bilaterally. ABDOMINAL: Soft, LUQ tenderness increases with movement radiates to back, nondistended, no hepatosplenomegaly. Normoactive BS. MUSCULOSKELETAL: Moves all extremities. Strength/ROM intact without gross deformities. Patient endorses increased L-sided chest pain when FILENET P8 DEVELOPER raises her L arm above her head. She also endorses mild tenderness when FILENET P8 DEVELOPER palpates her L breast. SKIN: Warm, dry, normal color. No rashes. NEURO: A&O X3. Speech clear. Cranial nerves II-XII grossly intact. No ataxic movements. PSYCHIATRIC: Appropriate mood and affect. Normal interaction. <Muna Avendaño APRN - Last Filed: 07/22/24 02:27> Course FILENET P8 DEVELOPER/PA Physician Supervision Patient signed out to me by previous midlevel provider. I reviewed patient's history physical exam and imaging studies. I independently evaluated the patient. Patient had serial negative troponins, unremarkable cardiac workup. CT of the chest was pending prior to final disposition. CT reveals a bulky fibroid uterus but no acute abnormalities in the chest abdomen pelvis otherwise. Patient's pain is likely secondary to the large uterus is pushing on her intra-abdominal organs and maybe causing diaphragm irritation. Patient was re-evaluated had reassuring vital signs. She is stable for discharge home with OBGYN follow-up. <Vu Mckeon MD - Last Filed: 07/22/24 06:38> Vital Signs Vital signs: Vital Signs Temperature 36.3 C L 07/21/24 23:06 Pulse Rate 81 07/21/24 23:06 Respiratory Rate 16 07/21/24 23:06 Blood Pressure 140/84 07/21/24 23:06 Pulse Oximetry 99 07/21/24 23:06 Oxygen Delivery Room Air 07/21/24 23:06 Temperature 36.3 C L 07/21/24 23:06 Pulse Rate 76 07/22/24 05:09 Respiratory Rate 15 07/22/24 05:09 Blood Pressure 110/73 07/22/24 02:42 Pulse Oximetry 97 07/22/24 05:09 Oxygen Delivery Room Air 07/21/24 23:59 <Muna Avendaño APRN - Last Filed: 07/22/24 02:27> Vital Signs Temperature 36.3 C L 07/21/24 23:06 Pulse Rate 81 07/21/24 23:06 Respiratory Rate 16 07/21/24 23:06 Blood Pressure 140/84 07/21/24 23:06 Pulse Oximetry 99 07/21/24 23:06 Oxygen Delivery Room Air 07/21/24 23:06 Temperature 36.3 C L 07/21/24 23:06 Pulse Rate 76 07/22/24 05:09 Respiratory Rate 15 07/22/24 05:09 Blood Pressure 110/73 07/22/24 02:42 Pulse Oximetry 97 07/22/24 05:09 Oxygen Delivery Room Air 07/21/24 23:59 <Vu Mckeon MD - Last Filed: 07/22/24 06:38> MDM - Chest Pain MDM Narrative Medical decision making narrative: Patient is a 44-year-old female who presents to the ER with 3 days of chest pain. She reports her pain is on the left side of her chest under her breast and radiates to her left upper back. Patient also endorses pain on her left lower back and bilateral lower abdominal quadrant pain. She reports her urine flow has decreased but has no other urinary symptoms. Patient reports she has a history appendectomy and uterine fibroids. She denies shortness of breath, other signs of illness, or numbness/ tingling. Patient reports her last bowel movement was this morning. Upon examination patient Patient endorses increased L-sided chest pain when FILENET P8 DEVELOPER raises her L arm above her head. She also endorses mild tenderness when FILENET P8 DEVELOPER palpates her L breast. Pt also endorses left upper abdominal pain with palpation. her CBC indicates mild anemia, which is consistent with her previous blood draws at this facility. Her chemistry indicates a sodium of 136 and a creatinine of 0.6. Patient given 1 L normal saline IV bolus. She was also given morphine 2 mg IV which she reports helped her relieve her pain mildly. Patient will be given Toradol and another dose of morphine to help achieve more pain relief. <Muna Avendaño DIPLOMA MAKER - Last Filed: 07/22/24 02:27> Differential Diagnosis Differential diagnosis: Likely atypical chest pain, costochondritis and chest pain <Muna Avendaño DIPLOMA MAKER - Last Filed: 07/22/24 02:27> Lab Data Attestation: I reviewed the patient's lab results. <Muna Avendaño DIPLOMA MAKER - Last Filed: 07/22/24 02:27> Result diagrams: 07/21/24 23:55 07/21/24 23:55 <Muna Avendaño DIPLOMA MAKER - Last Filed: 07/22/24 02:27> Labs: Lab Results 07/21/24 07/22/24 07/22/24 Range/Units 23:55 01:08 01:10 WBC 5.2 (4.5-10.0) K/mm3 RBC 4.03 L (4.2-5.4) M/mm3 Hgb 11.0 L (12.0-15.0) g/dL Hct 34.9 L (37.0-47.0) % MCV 86.6 (80-100) fl MCH 27.3 (26-34) pg MCHC 31.5 L (32-36) g/dl RDW 15.9 H (11.5-14.5) % Plt Count 230 (150-375) k/mm3 MPV 10.5 H (7.4-10.4) fl Immature Gran % (Auto) 0.2 (0-0.5) % Neut % (Auto) 47.4 (45.5-73.1) % Lymph % (Auto) 38.3 (18.3-44.2) % [place] % (Auto) 11.4 H (2.6-8.5) % Eos % (Auto) 2.3 (0-4.4) % Baso % (Auto) 0.4 (0.2-1.2) % Lymph # (Auto) 1.99 (0.9-3.2) K/mm3 [place] # (Auto) 0.6 (0.1-0.6) K/mm3 Eos # (Auto) 0.1 (0-0.3) K/mm3 Baso # (Auto) 0.0 (0.0-0.1) K/mm3 Abs Immat Gran (auto) 0.01 (0.00-0.031) K/mm3 Absolute Neuts (auto) 2.5 (1.3-6.7) K/mm3 Absolute Nucleated RBC 0.000 (0.0-0.012) K/mm3 Nucleated RBC % 0.0 (0.0-0.2) % PT 12.9 (11.1-14.7) Seconds INR 0.9 APTT 28.9 (22.3-36.8) Seconds Sodium 136 L (137-145) mmol/L Potassium 3.8 (3.4-5.0) mmol/L Chloride 101 (98-107) mmol/L Carbon Dioxide 28 (22-30) mmol/L Anion Gap 7 (4-12) mmol/L BUN 9 (7-17) mg/dL Creatinine 0.60 L (0.7-1.0) mg/dL Estim Creat Clear Calc 131 ml/min Estimated GFR > 60 (59 - ) Glucose 88 (65-110) mg/dL Calcium 9.2 (8.4-10.2) mg/dL Total Bilirubin 0.3 (0.2-1.3) mg/dL AST 19 (14-36) U/L ALT 15 (6-35) U/L Alkaline Phosphatase 79 (38-126) U/L Troponin I < 0.012 (0.000-0.034) ng/mL Total Protein 8.0 (6.3-8.2) g/dL Albumin 4.3 (3.5-5.1) g/dL Lipase 90 (23-300) U/L Beta HCG, Quant < 2.39 mIU/ML Urine Color Yellow (Yellow) Urine Appearance Clear (Clear) Urine pH 6.0 (5.0-9.0) Ur Specific [place] 1.006 (1.001-1.035) Urine Protein Negative (Negative) mg/dL Urine Glucose (UA) Negative (Negative) mg/dL Urine Ketones Negative (Negative) mg/dL Ur Blood (Man) Negative (Negative) Urine Nitrate Negative (Negative) Urine Bilirubin Negative (Negative) Urine Urobilinogen 0.2 (<2.0) mg/dL Leukocyte Esterase Rfl Negative (Negative) JEANA/UL POC Urine HCG, Qual Negative (Negative) Influenza A (RT-PCR) Negative (Negative) Influenza B (RT-PCR) Negative (Negative) RSV (RT-PCR) Negative (Negative) SARS-CoV-2 RNA (RT-PCR) Negative (Negative) 07/22/24 Range/Units 03:19 WBC (4.5-10.0) K/mm3 RBC (4.2-5.4) M/mm3 Hgb (12.0-15.0) g/dL Hct (37.0-47.0) % MCV (80-100) fl MCH (26-34) pg MCHC (32-36) g/dl RDW (11.5-14.5) % Plt Count (150-375) k/mm3 MPV (7.4-10.4) fl Immature Gran % (Auto) (0-0.5) % Neut % (Auto) (45.5-73.1) % Lymph % (Auto) (18.3-44.2) % [place] % (Auto) (2.6-8.5) % Eos % (Auto) (0-4.4) % Baso % (Auto) (0.2-1.2) % Lymph # (Auto) (0.9-3.2) K/mm3 [place] # (Auto) (0.1-0.6) K/mm3 Eos # (Auto) (0-0.3) K/mm3 Baso # (Auto) (0.0-0.1) K/mm3 Abs Immat Gran (auto) (0.00-0.031) K/mm3 Absolute Neuts (auto) (1.3-6.7) K/mm3 Absolute Nucleated RBC (0.0-0.012) K/mm3 Nucleated RBC % (0.0-0.2) % PT (11.1-14.7) Seconds INR APTT (22.3-36.8) Seconds Sodium (137-145) mmol/L Potassium (3.4-5.0) mmol/L Chloride (98-107) mmol/L Carbon Dioxide (22-30) mmol/L Anion Gap (4-12) mmol/L BUN (7-17) mg/dL Creatinine (0.7-1.0) mg/dL Estim Creat Clear Calc ml/min Estimated GFR (59 - ) Glucose (65-110) mg/dL Calcium (8.4-10.2) mg/dL Total Bilirubin (0.2-1.3) mg/dL AST (14-36) U/L ALT (6-35) U/L Alkaline Phosphatase (38-126) U/L Troponin I < 0.012 (0.000-0.034) ng/mL Total Protein (6.3-8.2) g/dL Albumin (3.5-5.1) g/dL Lipase (23-300) U/L Beta HCG, Quant mIU/ML Urine Color (Yellow) Urine Appearance (Clear) Urine pH (5.0-9.0) Ur Specific [place] (1.001-1.035) Urine Protein (Negative) mg/dL Urine Glucose (UA) (Negative) mg/dL Urine Ketones (Negative) mg/dL Ur Blood (Man) (Negative) Urine Nitrate (Negative) Urine Bilirubin (Negative) Urine Urobilinogen (<2.0) mg/dL Leukocyte Esterase Rfl (Negative) JEANA/UL POC Urine HCG, Qual (Negative) Influenza A (RT-PCR) (Negative) Influenza B (RT-PCR) (Negative) RSV (RT-PCR) (Negative) SARS-CoV-2 RNA (RT-PCR) (Negative) <Muna L. Huron, DIPLOMA MAKER - Last Filed: 07/22/24 02:27> Lab Results 07/21/24 07/22/24 07/22/24 Range/Units 23:55 01:08 01:10 WBC 5.2 (4.5-10.0) K/mm3 RBC 4.03 L (4.2-5.4) M/mm3 Hgb 11.0 L (12.0-15.0) g/dL Hct 34.9 L (37.0-47.0) % MCV 86.6 (80-100) fl MCH 27.3 (26-34) pg MCHC 31.5 L (32-36) g/dl RDW 15.9 H (11.5-14.5) % Plt Count 230 (150-375) k/mm3 MPV 10.5 H (7.4-10.4) fl Immature Gran % (Auto) 0.2 (0-0.5) % Neut % (Auto) 47.4 (45.5-73.1) % Lymph % (Auto) 38.3 (18.3-44.2) % [place] % (Auto) 11.4 H (2.6-8.5) % Eos % (Auto) 2.3 (0-4.4) % Baso % (Auto) 0.4 (0.2-1.2) % Lymph # (Auto) 1.99 (0.9-3.2) K/mm3 [place] # (Auto) 0.6 (0.1-0.6) K/mm3 Eos # (Auto) 0.1 (0-0.3) K/mm3 Baso # (Auto) 0.0 (0.0-0.1) K/mm3 Abs Immat Gran (auto) 0.01 (0.00-0.031) K/mm3 Absolute Neuts (auto) 2.5 (1.3-6.7) K/mm3 Absolute Nucleated RBC 0.000 (0.0-0.012) K/mm3 Nucleated RBC % 0.0 (0.0-0.2) % PT 12.9 (11.1-14.7) Seconds INR 0.9 APTT 28.9 (22.3-36.8) Seconds Sodium 136 L (137-145) mmol/L Potassium 3.8 (3.4-5.0) mmol/L Chloride 101 (98-107) mmol/L Carbon Dioxide 28 (22-30) mmol/L Anion Gap 7 (4-12) mmol/L BUN 9 (7-17) mg/dL Creatinine 0.60 L (0.7-1.0) mg/dL Estim Creat Clear Calc 131 ml/min Estimated GFR > 60 (59 - ) Glucose 88 (65-110) mg/dL Calcium 9.2 (8.4-10.2) mg/dL Total Bilirubin 0.3 (0.2-1.3) mg/dL AST 19 (14-36) U/L ALT 15 (6-35) U/L Alkaline Phosphatase 79 (38-126) U/L Troponin I < 0.012 (0.000-0.034) ng/mL Total Protein 8.0 (6.3-8.2) g/dL Albumin 4.3 (3.5-5.1) g/dL Lipase 90 (23-300) U/L Beta HCG, Quant < 2.39 mIU/ML Urine Color Yellow (Yellow) Urine Appearance Clear (Clear) Urine pH 6.0 (5.0-9.0) Ur Specific [place] 1.006 (1.001-1.035) Urine Protein Negative (Negative) mg/dL Urine Glucose (UA) Negative (Negative) mg/dL Urine Ketones Negative (Negative) mg/dL Ur Blood (Man) Negative (Negative) Urine Nitrate Negative (Negative) Urine Bilirubin Negative (Negative) Urine Urobilinogen 0.2 (<2.0) mg/dL Leukocyte Esterase Rfl Negative (Negative) JEANA/UL POC Urine HCG, Qual Negative (Negative) Influenza A (RT-PCR) Negative (Negative) Influenza B (RT-PCR) Negative (Negative) RSV (RT-PCR) Negative (Negative) SARS-CoV-2 RNA (RT-PCR) Negative (Negative) 07/22/24 Range/Units 03:19 WBC (4.5-10.0) K/mm3 RBC (4.2-5.4) M/mm3 Hgb (12.0-15.0) g/dL Hct (37.0-47.0) % MCV (80-100) fl MCH (26-34) pg MCHC (32-36) g/dl RDW (11.5-14.5) % Plt Count (150-375) k/mm3 MPV (7.4-10.4) fl Immature Gran % (Auto) (0-0.5) % Neut % (Auto) (45.5-73.1) % Lymph % (Auto) (18.3-44.2) % [place] % (Auto) (2.6-8.5) % Eos % (Auto) (0-4.4) % Baso % (Auto) (0.2-1.2) % Lymph # (Auto) (0.9-3.2) K/mm3 [place] # (Auto) (0.1-0.6) K/mm3 Eos # (Auto) (0-0.3) K/mm3 Baso # (Auto) (0.0-0.1) K/mm3 Abs Immat Gran (auto) (0.00-0.031) K/mm3 Absolute Neuts (auto) (1.3-6.7) K/mm3 Absolute Nucleated RBC (0.0-0.012) K/mm3 Nucleated RBC % (0.0-0.2) % PT (11.1-14.7) Seconds INR APTT (22.3-36.8) Seconds Sodium (137-145) mmol/L Potassium (3.4-5.0) mmol/L Chloride (98-107) mmol/L Carbon Dioxide (22-30) mmol/L Anion Gap (4-12) mmol/L BUN (7-17) mg/dL Creatinine (0.7-1.0) mg/dL Estim Creat Clear Calc ml/min Estimated GFR (59 - ) Glucose (65-110) mg/dL Calcium (8.4-10.2) mg/dL Total Bilirubin (0.2-1.3) mg/dL AST (14-36) U/L ALT (6-35) U/L Alkaline Phosphatase (38-126) U/L Troponin I < 0.012 (0.000-0.034) ng/mL Total Protein (6.3-8.2) g/dL Albumin (3.5-5.1) g/dL Lipase (23-300) U/L Beta HCG, Quant mIU/ML Urine Color (Yellow) Urine Appearance (Clear) Urine pH (5.0-9.0) Ur Specific [place] (1.001-1.035) Urine Protein (Negative) mg/dL Urine Glucose (UA) (Negative) mg/dL Urine Ketones (Negative) mg/dL Ur Blood (Man) (Negative) Urine Nitrate (Negative) Urine Bilirubin (Negative) Urine Urobilinogen (<2.0) mg/dL Leukocyte Esterase Rfl (Negative) JEANA/UL POC Urine HCG, Qual (Negative) Influenza A (RT-PCR) (Negative) Influenza B (RT-PCR) (Negative) RSV (RT-PCR) (Negative) SARS-CoV-2 RNA (RT-PCR) (Negative) <Vu Mckeon MD - Last Filed: 07/22/24 06:38> Discharge Plan Discharge Clinical Impression: Fibroid uterus, Chronic epigastric pain, Non-cardiac chest pain <Muna Avendaño APRN - Last Filed: 07/22/24 02:27> Patient Disposition: Home, Self-Care <Muna Avendaño APRN - Last Filed: 07/22/24 02:27> Condition: Stable <Muna Avendaño APRN - Last Filed: 07/22/24 02:27> Instructions: Antibiotic Form, Uterine Fibroids (ED) <Muna Avendaño APRN - Last Filed: 07/22/24 02:27> Additional Instructions: Your cardiac workup was reassuring. Your CT scan shows a very large bulky fibroid uterus that is likely the source of all your pain and symptomatology given the reassuring workup otherwise. You need to follow-up with OBGYN for pot ential interventions as this is amenable to surgeries and they would be able to better serve you. Return at any point with any new or worsening concerns. <Muna Avendaño APRN - Last Filed: 07/22/24 02:27> Prescriptions: No Action metronidazole 500 mg tablet 500 mg PO Q12H 14 Days Qty: 28 0RF doxycycline monohydrate 100 mg capsule 100 mg PO DAILY 14 Days Qty: 14 0RF levothyroxine 25 mcg tablet 25 mcg PO DAILY B Complex w-Vit C 1,000 mg PO DAILY folic acid 800 mg PO DAILY calcium carb, gluconate-vit D3 2,000 mcg BYMOUTH DAILY cephalexin 500 mg capsule 500 mg PO Q12H 10 Days Qty: 20 0RF Niferex ([place]-Quatrefolic) 150 mg iron- 60 mg-1 mg tablet 1 tablet PO DAILY Qty: 30 0RF oxycodone-acetaminophen [Percocet] 5-325 mg tablet 1 - 2 tablet PO Q6H PRN (Reason: pain) Qty: 30 0RF <Muna Avendaño APRN - Last Filed: 07/22/24 02:27> Follow-up/Referrals: Alisson,ARMIN Peterson [Primary Care Provider] - Akira Frias MD [Physician] - 3 Days (Symptomatic fibroids) <Muna Avendaño APRN - Last Filed: 07/22/24 02:27> Time of Disposition: 06:38 <Muna Avendaño APRN - Last Filed: 07/22/24 02:27> 06:38 <Vu Mckeon MD - Last Filed: 07/22/24 06:38>
[2024-07-22] MEDS: SODIUM CHLORIDE 0.9% IV 1,000 ML 999 ML IV CONT (01:03)
[2024-07-22] MEDS: MORPHINE SULFATE (*CRX) 2 MG/ML INJ IV PUSH (01:03)
[2024-07-22 01:10] LABS: BEDSIDEPREGUCG Negative (Negative)
[2024-07-22 01:24] LABS: Add Urine Microscopic? NO; Appearance Urine Clear (Clear); Bilirubin Urine Negative (Negative); Blood Urine Negative (Negative); Color Urine Yellow (Yellow); Glucose Urine UA Negative (Negative); Ketones Urine Negative (Negative); Leukocyte Esterase Ur Negative LEU/UL (Negative); Nitrate Urine Negative (Negative); Protein Urine Negative (Negative); Specific Grav Ur 1.006 (1.001-1.035); Urobilinogen Urine 0.2 mg/dL (<2.0)
[2024-07-22 01:27] LABS: Beta HCG Quantitative < 2.39 mIU/ML
[2024-07-22 02:05] VITALS: BP 120/71; PULSE 94; RESP 16; O2SAT 100
[2024-07-22 02:12] LABS: Influenza A QL RT-PCR Negative (Negative); Influenza B QL RT-PCR Negative (Negative); RSV RNA, RT-PCR Negative (Negative); SARS-CoV-2 RNA PCR Negative (Negative)
[2024-07-22] MEDS: MORPHINE SULFATE (*CRX) 4 MG/ML INJ IV PUSH (02:32)
[2024-07-22 02:42] VITALS: BP 110/73
[2024-07-22 03:46] LABS: Troponin I < 0.012 ng/mL (0.000-0.034)
[2024-07-22 05:09] VITALS: PULSE 76; RESP 15; O2SAT 97
[2024-07-22 07:02] VITALS: BP 110/76; PULSE 83; RESP 15; O2SAT 100
== END 2024-07-22 07:03 | disposition home or self-care (01) ==
PROVIDERS: Registered Nurse; Emergency Provider Student in an Organized Health Care Education/Training Program; PCP Physician Assistant
DX: D25.9 Leiomyoma of uterus, unspecified (principal); R10.13 Epigastric pain; G89.29 Other chronic pain; R07.89 Other chest pain; Z20.822 Contact with and (suspected) exposure to COVID-19
CPT/HCPCS: 36415; 71046; 71250; 74176; 80053; 81003; 81025; 83690; 84484; 84702; 85025; 85610; 85730; 87637; 93005; 96361; 96374; 96376; 99284; J2270; J7030

== ENCOUNTER 2024-11-11 15:27 | Outpatient (CLI) | payer OTHER, SELFPAY ==
--- NOTE | ~2024-11-11 | MM_ITS ---
EXAMINATION: MM screening pennie BI w farhan HISTORY: Screening TECHNIQUE: Craniocaudal and mediolateral oblique 3-D tomosynthesis images were obtained and synthetic 2-D images were generated. CAD analysis was submitted and interpreted. COMPARISON: 05/22/2022 BREAST PARENCHYMAL COMPOSITION: Dense: The breasts are heterogeneously dense, which may obscure small masses FINDINGS: There is no evidence of suspicious mass, calcification, or architectural distortion to sugg est malignancy in either breast. There has been no suspicious interval change. IMPRESSION: 1. No mammographic evidence of malignancy. 2. Recommend routine screening mammography in one year. BI-RADS Category 1: Negative Reviewed, dictated and finalized at location B. STRIAL HYGENIST
--- OUTSIDE RECORDS SUMMARY | 2024-11-11 15:31 | XMS_ITS | Data Portability ---
Author Organization [facility] Address [address] [place] [address] Care Team Providers Care Child Psychiatrist Name Role Phone CHRISTELLE JACOBS [employer] Leak Tester KRISTEN WRIGHT Primary Care Provider [phone] Assessment Encounter Date Assessment Date Assessment LastModified by Organization Details LastModified Time 04/12/2019 04/12/2019 38yo G0 here for infertility evaluation. [email or web address] Not available 04/12/2019 19:41:16 Plan of Treatment Reminders Order Date Submit Date Provider Last Modified By Organization Details Last Modified Time Details Appointments None recorded. Lab CMP, serum or plasma 2023 024 [place] [facility], [address], [place], [address], 4 10:31:59 lipid panel, serum 2023 024 ARELYERIN Freeman, [address], [place], [address], 4 10:31:59 CBC w/ auto diff 2023 024 ARE[facility] Lydia, [address], [place], [address], 4 10:31:59 TSH + free T4, serum 2023 024 ARELY Freeman, [address], [place], [address], 4 10:32:00 HbA1c (hemoglobi n A1c), blood 2023 024 [place] [facility], [address], [place], [address], 4 10:31:59 Referral obstetrici an and gynecologi st referral [address] [facility], [address], [place], [address], 4 08:07:13 [email or web address], [address] , [place], [address], 4 11:36:57 Procedures None recorded. Surgeries excision, tumor, soft tissue shoulder, subcutaneo us, 3cm or greater (SURG) 2023 024 [facility] (Surgery Sched), [address], [place], [address], 4 14:47:35 Imaging XR, hysterosal pingogram 2018 019 [email or web address] Not available 9 13:40:21 US, neck, soft tissue - L sided neck mass [address] (Imaging), [address], [place], [address], 4 07:59:20 MAMMO, screening, bilateral [address] [facility], [address], [place], [address], 4 07:59:20 Medication Orders fluticason e propionate 50 mcg/actuat ion nasal spray,susp ension 2023 024 [id number], [address], [place], [place], [id number], 16:37:06 cyclobenza jocelyn 5 mg tablet 2023 024 [facility][id number], [address], [place], [place], [id number], 16:43:12 Patient TargetsNo targets recorded. 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 Referral for Screening for malignant neoplasm of cervix Referring Physician: Kristen Wright [facility], Encounter Date: 06/28/2024 General Surgeon Referral for Mass of neck Referring Physician: Kristen Wright [facility], Encounter Date: 07/26/2024 Results Created Date Observation Date Name Description Value Unit Range Abnormal Flag Note LastModifiedBy Organization Detail LastModifiedTime 03/17/20 19 03/18/2019 CBC w/ auto diff WBC 4.9 x10e3 /uL 3.4-10 .8 Not Available [facility] ([facility]) [address] [place], [address], 03/18/2019 10:36:44 03/17/2003/18/2019 CBC w/ auto diff RBC 4.15 x10e6 /uL 3.77-5 .28 Not Available [facility] ([facility]) [address] [facility], [place], [address], 03/18/2019 10:36:44 03/17/20 19 03/18/2019 CBC w/ auto diff hemoglobin 11.9 g/dL 11.1-1 5.9 Not Available [facility] ([facility]) [address] [place], [address], 03/18/2019 10:36:44 03/17/20 19 03/18/2019 CBC w/ auto diff hematocrit 34.7 % 34.0-4 6.6 Not Available [facility] ([facility]) [address] [place], [address], 03/18/2019 10:36:44 03/17/20 19 03/18/2019 CBC w/ auto diff MCV 84 fL 79-97 Not Available [facility] ([facility]) [address] [place], [address], 03/18/2019 10:36:44 03/17/20 19 03/18/2019 CBC w/ auto diff MCH 28.7 pg 26.6-3 3.0 Not Available [facility] ([facility]) [address] [place], [address], 03/18/2019 10:36:44 03/17/2003/18/2019 CBC w/ auto diff MCHC 34.3 g/dL 31.5-3 5.7 Not Available [facility] ([facility]) [address] [place], [address], 03/18/2019 10:36:44 03/17/2003/18/2019 CBC w/ auto diff RDW 14.3 % 12.3-1 5.4 Not Available [facility] ([facility]) [address] [facility], [place], [address], 03/18/2019 10:36:44 03/17/2003/18/2019 CBC w/ auto diff platelets 248 x10e3 /uL 150-45 0 Not Available [facility] ([facility]) [address] [place], [address], 03/18/2019 10:36:44 03/17/2003/18/2019 CBC w/ auto diff neutrophils 46 % not estab. Not Available [facility] ([facility]) [address] [place], [address], 03/18/2019 10:36:44 03/17/20 19 03/18/2019 CBC w/ auto diff lymphs 43 % not estab. Not Available [facility] ([facility]) [address] [place], [address], 03/18/2019 10:36:44 03/17/20 19 03/18/2019 CBC w/ auto diff monocytes 9 % not estab. Not Available [facility] ([facility]) [address] [facility], [place], [address], 03/18/2019 10:36:44 03/17/2003/18/2019 CBC w/ auto diff eos 2 % not estab. Not Available [facility] ([facility]) [address] [place], [address], 03/18/2019 10:36:44 03/17/2003/18/2019 CBC w/ auto diff basos 0 % not estab. 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 0 Not Available [facility] ([facility]) [address] [place], [address], 03/18/2019 10:36:44 03/17/2003/18/2019 CBC w/ auto diff lymphs (absolute) 2.1 x10e3 /uL 0.7-3. 1 Not Available [facility] ([facility]) [address] [place], [address], 03/18/2019 10:36:44 03/17/20 19 03/18/2019 CBC w/ auto diff monocytes(ab solute) 0.4 x10e3 /uL 0.1-0. 9 Not Available [facility] ([facility]) [address] [facility], [place], [address], 03/18/2019 10:36:44 03/17/2003/18/2019 CBC w/ auto diff eos (absolute) 0.1 x10e3 /uL 0.0-0. 4 Not Available [facility] ([facility]) [address] [facility], [place], [address], 03/18/2019 10:36:44 03/17/2003/18/2019 CBC w/ auto diff baso (absolute) 0.0 x10e3 /uL 0.0-0. 2 Not Available [facility] ([facility]) [address] [facility], [place], [address], 03/18/2019 10:36:44 03/17/2003/18/2019 CBC w/ auto diff immature granulocytes 0 % not estab. Not Available [facility] ([facility]) [address] [facility], [place], [address], 03/18/2019 10:36:44 03/17/2003/18/2019 CBC w/ auto diff immature grans (abs) 0.0 x10e3 /uL 0.0-0. 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 Not Available [facility] ([facility]) [address] [place], [address], 03/18/2019 10:36:44 03/17/2003/18/2019 CBC w/ auto diff hematology comments: VAT OPERATOR Not Available [facility] ([facility]) [address] [facility] [place], [address], 03/18/2019 10:36:44 03/17/2003/18/2019 CMP, serum or plasm a glucose 87 mg/dL 65-99 Not Available [facility] ([facility]) [address] [facility] [place], [address], 03/18/2019 10:36:45 03/17/2003/18/2019 CMP, serum or plasm a BUN 8 mg/dL 6-20 Not Available [facility] ([facility]) [address] [facility] [place], [address], 03/18/2019 10:36:45 03/17/2003/18/2019 CMP, serum or plasm a creatinine 0.82 mg/dL 0.57-1 .00 Not Available [facility] ([facility]) [address] [place], [address], 03/18/2019 10:36:45 03/17/2003/18/2019 CMP, serum or plasm a eGFR if nonafricn AM 91 mL/mi n/1.7 3 >59 Not Available [facility] ([facility]) [address] [facility], [place], [address], 03/18/2019 10:36:45 03/17/2003/18/2019 CMP, serum or plasm a eGFR if africn AM 105 mL/mi n/1.7 3 >59 Not Available [facility] ([facility]) [address] [place], [address], 03/18/2019 10:36:45 03/17/2003/18/2019 CMP, serum or plasm a BUN/creatini ne ratio 10 9-23 Not Available [facility] ([facility]) [address] [facility] [place], [address], 03/18/2019 10:36:45 03/17/2003/18/2019 CMP, serum or plasm a sodium 141 mmol/ L 134-14 4 Not Available [facility] ([facility]) [address] [facility] [place], [address], 03/18/2019 10:36:45 03/17/2003/18/2019 CMP, serum or plasm a potassium 4.4 mmol/ L 3.5-5. 2 Not Available [facility] ([facility]) [address] [facility] [place], [address], 03/18/2019 10:36:45 03/17/2003/18/2019 CMP, serum or plasm a chloride 105 mmol/ L 96-106 Not Available [facility] ([facility]) [address] [facility] [place], [address], 03/18/2019 10:36:45 03/17/2003/18/2019 CMP, serum or plasm a carbon dioxide, total 22 mmol/ L 20-29 Not Available [facility] ([facility]) [address] [facility] [place], [address], 03/18/2019 10:36:45 03/17/2003/18/2019 CMP, serum or plasm a calcium 9.5 mg/dL 8.7-10 .2 Not Available [facility] ([facility]) [address] [facility] [place], [address], 03/18/2019 10:36:45 03/17/2003/18/2019 CMP, serum or plasm a protein, total 6.9 g/dL 6.0-8. 5 Not Available [facility] ([facility]) [address] [facility] [place], [address], 03/18/2019 10:36:45 03/17/2003/18/2019 CMP, serum or plasm a albumin 4.4 g/dL 3.5-5. 5 Not Available [facility] ([facility]) [address] [facility] [place], [address], 03/18/2019 10:36:45 03/17/20 19 03/18/2019 CMP, serum or plasm a globulin, total 2.5 g/dL 1.5-4. 5 Not Available [facility] ([facility]) [address] [place], [address], 03/18/2019 10:36:45 03/17/2003/18/2019 CMP, serum or plasm a A/G ratio 1.8 1.2-2. 2 Not Available [facility] ([facility]) [address] [facility], [place], [address], 03/18/2019 10:36:45 03/17/2003/18/2019 CMP, serum or plasm a bilirubin, total 0.3 mg/dL 0.0-1. 2 Not Available [facility] ([facility]) [address] [facility], [place], [address], 03/18/2019 10:36:45 03/17/2003/18/2019 CMP, serum or plasm a alkaline phosphatase 61 IU/L 39-117 Not Available [facility] ([facility]) [address] [facility], [place], [address], 03/18/2019 10:36:45 03/17/2003/18/2019 CMP, serum or plasm a AST (SGOT) 13 IU/L 0-40 Not Available [facility] ([facility]) [address] [place], [address], 03/18/2019 10:36:45 03/17/2003/18/2019 CMP, serum or plasm a ALT (SGPT) 13 IU/L 0-32 Not Available [facility] ([facility]) [address] [place], [address], 03/18/2019 10:36:45 03/17/2003/18/2019 iron + total iron- soheila ng capac ity (TIBC ), serum iron bind.cap.(TI BC) 348 ug/dL 250-45 0 Not Available [facility] ([facility]) [address] [place], [address], 03/18/2019 10:36:46 03/17/2003/18/2019 iron + total iron- soheila ng capac ity (TIBC ), serum UIBC 288 ug/dL 131-42 5 Not Available [facility] ([facility]) [address] [place], [address], 03/18/2019 10:36:46 03/17/2003/18/2019 iron + total iron- soheila ng capac ity (TIBC ), serum iron 60 ug/dL 27-159 Not Available [facility] ([facility]) [address] [place], [address], 03/18/2019 10:36:46 03/17/2003/18/2019 iron + total iron- soheila ng capac ity (TIBC ), serum iron saturation 17 % 15-55 Not Available [facility] ([facility]) [address] [place], [address], 03/18/2019 10:36:46 03/17/2003/18/2019 lh + FSH, serum LH 11.9 mIU/m L Adult Femal e: Folli cular phase 2.4 - 12.6 Ovula tion phase 14.0 - 95.6 Lutea l phase 1.0 - 11.4 Postm enopa usal 7.7 - 58.5 Not Available [facility] ([facility]) [address] [place], [address], 03/18/2019 10:36:46 03/17/2003/18/2019 lh + FSH, serum FSH 4.7 mIU/m L Adult Femal e: Folli cular phase 3.5 - 12.5 Ovula tion phase 4.7 - 21.5 Lutea l phase 1.7 - 7.7 Postm enopa usal 25.8 - 134.8 Not Available [facility] ([facility]) [address] [facility] [place], [address], 03/18/2019 10:36:46 03/17/20 19 03/18/2019 TSH, ultra -sens itive , serum TSH 3.390 uIU/m L 0.450- 4.500 Not Available [facility] ([facility]) [address] [place], [address], 03/18/2019 10:36:47 03/17/20 19 03/18/2019 abraham tin, serum or plasm a ferritin, serum 30 NG/mL 15-150 Not Available [facility] ([facility]) [address] [facility], [place], [address], 03/18/2019 10:36:47 06/28/20 24 06/29/2024 TSH+F REE T4 TSH 4.320 uIU/m L 0.450- 4.500 Not Available [facility] ([facility]) [address] [place], [address], 06/29/2024 10:15:29 06/28/20 24 06/29/2024 TSH+F REE T4 T4,free(dire ct) 1.38 NG/dL 0.82-1 .77 Not Available [facility] ([facility]) [address] [place], [address], 06/29/2024 10:15:29 06/28/20 24 06/29/2024 LIPID PANEL WITH LDL/H DL RATIO cholesterol, total 183 mg/dL 100-19 9 Not Available [facility] ([facility]) [address] [place], [address], 06/29/2024 10:15:29 06/28/20 24 06/29/2024 LIPID PANEL WITH LDL/H DL RATIO triglyceride s 58 mg/dL 0-149 Not Available [facility] ([facility]) [address] [place], [address], 06/29/2024 10:15:29 06/28/20 24 06/29/2024 LIPID PANEL WITH LDL/H DL RATIO HDL cholesterol 56 mg/dL >39 Not Available [facility] ([facility]) [address] [place], [address], 06/29/2024 10:15:29 06/28/20 24 06/29/2024 LIPID PANEL WITH LDL/H DL RATIO VLDL cholesterol eden 11 mg/dL 5-40 Not Available [facility] ([facility]) [address] [place], [address], 06/29/2024 10:15:29 06/28/20 24 06/29/2024 LIPID PANEL WITH LDL/H DL RATIO LDL chol calc ([facility]) 116 mg/dL 0-99 above high normal Not Available [facility] ([facility]) [address] [place], [address], 06/29/2024 10:15:29 06/28/20 24 06/29/2024 LIPID PANEL WITH LDL/H DL RATIO LDL/HDL ratio 2.1 ratio 0.0-3. 2 LDL/H DL Ratio Men Women 1/2 Avg.R isk 1.0 1.5 Avg.R isk 3.6 3.2 2X Avg.R isk 6.2 5.0 3X Avg.R isk 8.0 6.1 Not Available [facility] ([facility]) [address] [place], [address], 06/29/2024 10:15:29 06/28/20 24 06/29/2024 COMP. METAB OLIC PANEL (14) glucose 87 mg/dL 70-99 Not Available [facility] ([facility]) [address] [place], [address], 06/29/2024 10:15:30 06/28/20 24 06/29/2024 COMP. METAB OLIC PANEL (14) BUN 10 mg/dL 6-24 Not Available [facility] ([facility]) [address] [place], [address], 06/29/2024 10:15:30 06/28/20 24 06/29/2024 COMP. METAB OLIC PANEL (14) creatinine 0.66 mg/dL 0.57-1 .00 Not Available [facility] ([facility]) [address] [place], [address], 06/29/2024 10:15:30 06/28/20 24 06/29/2024 COMP. METAB OLIC PANEL (14) eGFR 111 mL/mi n/1.7 3 >59 Not Available [facility] ([facility]) [address] [facility] [place], [address], 06/29/2024 10:15:30 06/28/20 24 06/29/2024 COMP. METAB OLIC PANEL (14) BUN/creatini ne ratio 15 9-23 Not Available [facility] ([facility]) [address] [facility], [place], [address], 06/29/2024 10:15:30 06/28/20 24 06/29/2024 COMP. METAB OLIC PANEL (14) sodium 139 mmol/ L 134-14 4 Not Available [facility] ([facility]) [address] [facility], [place], [address], 06/29/2024 10:15:30 06/28/20 24 06/29/2024 COMP. METAB OLIC PANEL (14) potassium 4.4 mmol/ L 3.5-5. 2 Not Available [facility] ([facility]) [address] [facility] [place], [address], 06/29/2024 10:15:30 06/28/20 24 06/29/2024 COMP. METAB OLIC PANEL (14) chloride 101 mmol/ L 96-106 Not Available [facility] ([facility]) [address] [facility] [place], [address], 06/29/2024 10:15:30 06/28/20 24 06/29/2024 COMP. METAB OLIC PANEL (14) carbon dioxide, total 23 mmol/ L 20-29 Not Available [facility] ([facility]) [address] [facility], [place], [address], 06/29/2024 10:15:30 06/28/20 24 06/29/2024 COMP. METAB OLIC PANEL (14) calcium 9.3 mg/dL 8.7-10 .2 Not Available [facility] ([facility]) [address] [facility], [place], [address], 06/29/2024 10:15:30 06/28/20 24 06/29/2024 COMP. METAB OLIC PANEL (14) protein, total 6.9 g/dL 6.0-8. 5 Not Available [facility] ([facility]) [address] [facility], [place], [address], 06/29/2024 10:15:30 06/28/20 24 06/29/2024 COMP. METAB OLIC PANEL (14) albumin 4.3 g/dL 3.9-4. 9 Not Available [facility] ([facility]) [address] [facility], [place], [address], 06/29/2024 10:15:30 06/28/20 24 06/29/2024 COMP. METAB OLIC PANEL (14) globulin, total 2.6 g/dL 1.5-4. 5 Not Available [facility] ([facility]) [address] [facility], [place], [address], 06/29/2024 10:15:30 06/28/20 24 06/29/2024 COMP. METAB OLIC PANEL (14) bilirubin, total 0.2 mg/dL 0.0-1. 2 Not Available [facility] ([facility]) [address] [facility], [place], [address], 06/29/2024 10:15:30 06/28/20 24 06/29/2024 COMP. METAB OLIC PANEL (14) alkaline phosphatase 81 IU/L 44-121 Not Available [facility] ([facility]) [address] [place], [address], 06/29/2024 10:15:30 06/28/20 24 06/29/2024 COMP. METAB OLIC PANEL (14) AST (SGOT) 9 IU/L 0-40 Not Available [facility] ([facility]) [address] [place], [address], 06/29/2024 10:15:30 06/28/20 24 06/29/2024 COMP. METAB OLIC PANEL (14) ALT (SGPT) 7 IU/L 0-32 Not Available [facility] ([facility]) [address] [place], [address], 06/29/2024 10:15:30 06/28/20 24 06/29/2024 HEMOG LOBIN A1C hemoglobin A1C 5.4 % 4.8-5. 6 Predi abete s: 5.7 - 6.4 Diabe warren: >6.4 Glyce gutierrez contr ol for adult s with diabe warren: <7.0 Not Available [facility] ([facility]) [address] [place], [address], 06/29/2024 10:15:30 06/28/20 24 06/29/2024 CBC WITH DIFFE RENTI AL/PL ATELE T WBC 4.3 x10e3 /uL 3.4-10 .8 Not Available [facility] ([facility]) [address] [place], [address], 06/29/2024 10:15:31 06/28/20 24 06/29/2024 CBC WITH DIFFE RENTI AL/PL ATELE T RBC 4.17 x10e6 /uL 3.77-5 .28 Not Available [facility] ([facility]) [address] [place], [address], 06/29/2024 10:15:31 06/28/20 24 06/29/2024 CBC WITH DIFFE RENTI AL/PL ATELE T hemoglobin 11.2 g/dL 11.1-1 5.9 Not Available [facility] ([facility]) [address] [facility], [place], [address], 06/29/2024 10:15:31 06/28/20 24 06/29/2024 CBC WITH DIFFE RENTI AL/PL ATELE T hematocrit 35.6 % 34.0-4 6.6 Not Available [facility] ([facility]) [address] [place], [address], 06/29/2024 10:15:31 06/28/20 24 06/29/2024 CBC WITH DIFFE RENTI AL/PL ATELE T MCV 85 fL 79-97 Not Available [facility] ([facility]) [address] [place], [address], 06/29/2024 10:15:31 06/28/20 24 06/29/2024 CBC WITH DIFFE RENTI AL/PL ATELE T MCH 26.9 pg 26.6-3 3.0 Not Available [facility] ([facility]) [address] [place], [address], 06/29/2024 10:15:31 06/28/20 24 06/29/2024 CBC WITH DIFFE RENTI AL/PL ATELE T MCHC 31.5 g/dL 31.5-3 5.7 Not Available [facility] ([facility]) [address] [place], [address], 06/29/2024 10:15:31 06/28/20 24 06/29/2024 CBC WITH DIFFE RENTI AL/PL ATELE T RDW 14.3 % 11.7-1 5.4 Not Available [facility] ([facility]) [address] [place], [address], 06/29/2024 10:15:31 06/28/20 24 06/29/2024 CBC WITH DIFFE RENTI AL/PL ATELE T platelets 252 x10e3 /uL 150-45 0 Not Available [facility] ([facility]) [address] [facility], [place], [address], 06/29/2024 10:15:31 06/28/20 24 06/29/2024 CBC WITH DIFFE RENTI AL/PL ATELE T neutrophils 51 % notest ab. Not Available [facility] ([facility]) [address] [facility], [place], [address], 06/29/2024 10:15:31 06/28/20 24 06/29/2024 CBC WITH DIFFE RENTI AL/PL ATELE T lymphs 36 % notest ab. Not Available [facility] ([facility]) [address] [facility], [place], [address], 06/29/2024 10:15:31 06/28/20 24 06/29/2024 CBC WITH DIFFE RENTI AL/PL ATELE T monocytes 11 % notest ab. Not Available [facility] ([facility]) [address] [facility], [place], [address], 06/29/2024 10:15:31 06/28/20 24 06/29/2024 CBC WITH DIFFE RENTI AL/PL ATELE T eos 1 % notest ab. Not Available [facility] ([facility]) [address] [facility], [place], [address], 06/29/2024 10:15:31 06/28/20 24 06/29/2024 CBC WITH DIFFE RENTI AL/PL ATELE T basos 1 % notest ab. Not Available [facility] ([facility]) [address] [facility], [place], [address], 06/29/2024 10:15:31 06/28/20 24 06/29/2024 CBC WITH DIFFE RENTI AL/PL ATELE T neutrophils (absolute) 2.2 x10e3 /uL 1.4-7. 0 Not Available [facility] ([facility]) [address] [facility], [place], [address], 06/29/2024 10:15:31 06/28/20 24 06/29/2024 CBC WITH DIFFE RENTI AL/PL ATELE T lymphs (absolute) 1.6 x10e3 /uL 0.7-3. 1 Not Available [facility] ([facility]) [address] [facility], [place], [address], 06/29/2024 10:15:31 06/28/20 24 06/29/2024 CBC WITH DIFFE RENTI AL/PL ATELE T monocytes(ab solute) 0.5 x10e3 /uL 0.1-0. 9 Not Available [facility] ([facility]) [address] [facility], [place], [address], 06/29/2024 10:15:31 06/28/20 24 06/29/2024 CBC WITH DIFFE RENTI AL/PL ATELE T eos (absolute) 0.1 x10e3 /uL 0.0-0. 4 Not Available [facility] ([facility]) [address] [facility], [place], [address], 06/29/2024 10:15:31 06/28/20 24 06/29/2024 CBC WITH DIFFE RENTI AL/PL ATELE T baso (absolute) 0.0 x10e3 /uL 0.0-0. 2 Not Available [facility] ([facility]) [address] [facility], [place], [address], 06/29/2024 10:15:31 06/28/20 24 06/29/2024 CBC WITH DIFFE RENTI AL/PL ATELE T immature granulocytes 0 % notest ab. Not Available [facility] ([facility]) [address] [facility], [place], [address], 06/29/2024 10:15:31 06/28/20 24 06/29/2024 CBC WITH DIFFE RENTI AL/PL ATELE T immature grans (abs) 0.0 x10e3 /uL 0.0-0. 1 Not Available [facility] ([facility]) [address] [facility], [place], [address], 06/29/2024 10:15:31 07/05/20 24 07/05/2024 US, neck, soft tissu e No observ ation record ed. [address], [place], [address], 07/26/2024 14:42:27 07/22/2007/22/2024 CT, chest + abdom en + pelvi s, w/o contr ast No observ ation record ed. [address], [place], [address], 07/22/2024 13:48:20 Result Notes None recorded. Problems Name Problem SNOMED Code Status Onset Date Resolution Date Notes Provider Name and Address Organization Details Recorded Time Uterine leiomyoma [id number] Active 024 [id number] XIE Attn: Accounting ,[address] [facility], [place], [address] , [facility] 13:08:11 Notes:Fibroids Problem Notes None recorded. Procedures Surgical History Date Name Laterality Status Provider Name and Address Organization Details Recorded Time 09/21/20 24 EXCISION, TUMOR, SOFT TISSUE SHOULDER, SUBCUTANEOUS, 3CM OR GREATER (SURG) completed Perez Uriostegui MD [address] [place], [address], [place] [facility] 09/22/2024 11:15:51 10/12/19 18 open myomectomy completed Tony Martinez PA - [facility] 04/12/20 16:46:10 10/12/19 04 appendectomy completed Tony Martinez PA - [facility] 04/12/2019 16:46:22 Imaging Results Imaging Date Name Status LastModified by Organiz ation Details LastModified Time 07/05/2024 US, neck, soft tissue completed [address], [place], [address], 07/26/2024 14:42:27 07/22/2024 CT, chest + abdomen + pelvis, w/o contrast completed [address], [place], [address], 07/22/2024 13:48:20 Procedure Notes None recorded. Medical Equipment None Reported. Allergies Allergen ID Allergen Name Allergen Category Reaction Reaction Severity Criticality Documentation Date Start Date Code Code System Note Provider Name and Address Organization Details Recorded Time [id number] nut - unspecifi ed food itching Not available Not available 05/24/2018 [id number] UNK Not Available Not Available Not Available Medications Name Sig Start Date Stop Date Status Note LastModified by Organization Details LastModified Time ferrous sulfate 325 mg (65 mg iron) tablet Take 1 tablet every day by oral route before meals. 2017 active Not Available Not Available Not Avai lable fluticasone propionate 50 mcg/actuation nasal spray,suspensi on SHAKE LIQUID AND USE 1 SPRAY IN EACH NOSTRIL EVERY DAY DIRECTED active Not Available Not Available No t Available oxycodone 5 mg tablet active Not Available Not Available Not Available cyclobenzaprin e 5 mg tablet TAKE 1 TABLET BY MOUTH TWICE DAILY active Not Available Not Available No t Available Geritol Complete active Not Available Not Available Not Available Vitals Date Recorded Body height Provider Name an d Address Organization Details Last Updated DateTime 04/12/2019 174.63 cm Jaymie Welch MA [facility] 019 16:30:30 Date Recorded Body mass index (BMI) Body weight Provider Name and Address Organization Details Last Updated DateTime 04/12/2019 31.8 kg/m2 46271.2 g Jaymie Welch MA [facility] 04/12/2019 16:30:39 Date Recorded Body height Provider Name an d Address Organization Details Last Updated DateTime 06/28/2024 174.63 cm Clarisa Payan MA [facility] 12:16:16 Date Recorded Body mass index (BMI) Body weight Provider Name and Address Organization Details Last Updated DateTime 06/28/2024 36.5 kg/m2 069794.23 g Clarisa Payan MA [place] - [facility] 06/28/2024 12:16:21 Date Recorded Oxygen saturation Oxygen saturation in Arterial blood by Pulse oximetry Provider Name and Address Organization Details Last Updated DateTime 06/28/2024 98 % 98 % LORRAINE Piper [facility] 06/28/2024 12:16:23 Date Recorded Heart rate Provider Name an d Address Organization Details Last Updated DateTime 06/28/2024 90 /min АНДРЕЙ XIE Attn: Accounting,[address] [facility], [place], [address], [place] - [facility] 06/30/2024 13:07:49 Date Recorded Respiratory rate Provider Name a nd Address Organization Details Last Updated DateTime 06/28/2024 18 /min Clarisa Payan MA [facility] 12:16:28 Date Recorded Body height Provider Name an d Address Organization Details Last Updated DateTime 07/26/2024 174.63 cm LORRAINE Betts [facility] 16:20:09 Date Recorded Body mass index (BMI) Provider Name and Address Organization Details Last Updated DateTime 07/26/2024 36.8 kg/m2 LORRAINE Betts [facility] 16:23:46 Date Recorded Body weight Provider Name an d Address Organization Details Last Updated DateTime 07/26/2024 023758.72 g LORRAINE Betts [facility] 07/26/20 16:23:47 Date Recorded Oxygen saturation Oxygen saturation in Arterial blood by Pulse oximetry Provider Name and Address Organization Details Last Updated DateTime 07/26/2024 99 % 99 % Janki Mosqueda MA [facility] 07/26/2024 16:23:49 Date Recorded Heart rate Provider Name an d Address Organization Details Last Updated DateTime 07/26/2024 100 /min Janki Mosqueda MA [facility] 16:23:52 Date Recorded Respiratory rate Provider Name a nd Address Organization Details Last Updated DateTime 07/26/2024 17 /min Janki Mosqueda MA [facility] 16:23:53 Date Recorded Body height Provider Name an d Address Organization Details Last Updated DateTime 08/11/2024 174.63 cm Gela miguel LORRAINE [facility] 08/11/2024 12:05:55 Date Recorded Body mass index (BMI) Body weight Provider Name and Address Organization Details Last Updated DateTime 08/11/2024 37.7 kg/m2 392505.31 g Gela Graves MA [facility] 08/11/2024 12:06:10 Date Recorded Heart rate Provider Name an d Address Organization Details Last Updated DateTime 08/11/2024 92 /min Gela miguel LORRAINE [facility] 08/11/2024 12:06:24 Date Recorded Body temperature Provider Name a nd Address Organization Details Last Updated DateTime 08/11/2024 98.4 [degF] Gela Graves MA [facility] 08/11/2024 12:06:29 Date Recorded Pain severity - 0-10 verbal numeric rating [Score] - Reported Provider Name and Address Organization Details Last Updated DateTime 08/11/2024 3 Gela miguel MA [facility] 08/11/2024 12:06:40 Date Recorded Oxygen saturation Oxygen saturation in Arterial blood by Pulse oximetry Provider Name and Address Organization Details Last Updated DateTime 08/11/2024 100 % 100 % Gela Graves MA [facility] 08/11/2024 12:06:44 Date Recorded Body height Provider Name an d Address Organization Details Last Updated DateTime 10/06/2024 174.63 cm Gela miguel MA [facility] 10/06/2024 10:40:00 Date Recorded Body mass index (BMI) Body weight Provider Name and Address Organization Details Last Updated DateTime 10/06/2024 37.7 kg/m2 176254.59 ainsley Gela Graves MA [facility] 10/06/2024 10:45:33 Date Recorded Body temperature Provider Name a nd Address Organization Details Last Updated DateTime 10/06/2024 98.2 [degF] Gela Graves MA [facility] 10/06/2024 10:45:37 Date Recorded Pain severity - 0-10 verbal numeric rating [Score] - Reported Provider Name and Address Organization Details Last Updated DateTime 10/06/2024 0 Gela miguel MA [facility] 10/06/2024 10:46:15 Date Recorded Heart rate Provider Name an d Address Organization Details Last Updated DateTime 10/06/2024 89 /min Gela miguel MA [facility] 10/06/2024 10:46:09 Date Recorded Oxygen saturation Oxygen saturation in Arterial blood by Pulse oximetry Provider Name and Address Organization Details Last Updated DateTime 10/06/2024 99 % 99 % Gela Graves MA [facility] 10/06/2024 10:46:18 Date Recorded Systolic blood pressure Diastolic blood pressure Provider Name and Address Organization Details Last Updated DateTime 04/12/2019 100 mm[Hg] 66 mm[Hg] Jaymie Welch MA [facility] 04/12/2019 16:31:47 Date Recorded Systolic blood pressure Diastolic blood pressure Provider Name and Address Organization Details Last Updated DateTime 06/28/2024 126 mm[Hg] 82 mm[Hg] Clarisa Payan MA [facility] 06/28/2024 12:16:08 Date Recorded Systolic blood pressure Diastolic blood pressure Provider Name and Address Organization Details Last Updated DateTime 07/26/2024 125 mm[Hg] 86 mm[Hg] Janki Mosqueda MA [facility] 07/26/2024 16:23:42 Date Recorded Systolic blood pressure Diastolic blood pressure Provider Name and Address Organization Details Last Updated DateTime 08/11/2024 127 mm[Hg] 77 mm[Hg] Gela Graves MA [facility] 08/11/2024 12:06:20 Date Recorded Systolic blood pressure Diastolic blood pressure Provider Name and Address Organization Details Last Updated DateTime 10/06/2024 146 mm[Hg] 82 mm[Hg] Gela Graves MA [facility] 10/06/2024 10:46:04 Social History Question Answer Notes LastModified by Organizat ion Details LastModified Time Tobacco Smoking Status Never Smoker Bess Pinedo MA null, [facility] 05/24/2018 11:30:57 Do You Have An Advance Directive? No Information n ot available 08/11/2024 In The 14 Days Before Symptom Onset, Have You Had Close Contact With A Laboratory-confirm ed COVID-19 While That Case Was Ill? No Information n ot available 08/11/2024 In The 14 Days Before Symptom Onset, Have You Had Close Contact With A Person Who Is Under Investigation For COVID-19 While That Person Was Ill? No Information not available 08/11/2024 Have You Been To An Area Known To Be High Risk For COVID-19? No Information not available 08/11/2024 Are You Currently Employed? No Information not available 08/11/2024 What Type Of Diet Are You Following? REGULAR Information n ot available 08/11/2024 Do You Have A Medical Power Of Academic Hospitalist? No Information not available 08/11/2024 What Was The Date Of Your Most Recent Tobacco Screening? 10/06/2024 Information not available 10/06/2024 What Is Your Relationship Status? Information not available 08/11/2024 Do You Use Any Illicit Or Recreational Drugs? No Information not available 08/11/2024 Has Tobacco Cessation Counseling Been Provided? Yes [email or web address] Information not available 06/28/2024 On What Date Was Tobacco Cessation Counseling Provided? 10/06/2024 Information not available 10/06/2024 Do You Or Have You Ever Used Any Other Forms Of Tobacco Or Nicotine? No Information not available 08/11/2024 Sex: Female Functional Status Question Answer Note LastModified by Organization D etails LastModified Time Are you able to care for yourself? Yes Information n ot available 08/11/2024 Mental Status None recorded. Family History Relationship Description Onset Age of this Age Resolved Age Notes LastModified by Organization Details LastModified Time Father No current problems or disability [email or web address] Not available 05/24 11:28:01 Mother No current problems or disability [email or web address] Not available 05/24 11:28:01 Medical History Condition Response Coronary Artery Disease N Other N Atrial Fibrillation N High Blood Pressure N Depression N COPD N Blood Clots N Anxiety Disorder N Muscle, Joint, or Bone Problems N Arthritis N Acid Reflux (GERD) N Cancer N Stroke N ADHD N High Cholesterol N Liver Disease N Schizophrenia N Headaches N Thyroid Problems N Kidney or Bladder Problems N GI Problems N Have you had a mammogram in the last yea r? N Eating Disorder N Skin Problems N Anemia N Heart Attack ([place]) N Diabetes N Seizures/Epilepsy N Have you had a colonoscopy in the last 1 0 years? N Asthma N Allergies N Have you had a PSA blood test in the las t year? N Substance Abuse N Hepatitis N Heart Failure N Osteoporosis N Gynecological History Statement/Question Response Abnormal Pap N Flow Date of LMP 06/25/2024 STIs/STDs N HPV Vaccine N Duration of Flow (days) 12 Most Recent Mammogram Age at Menarche 13 Current Control Method None Frequency of Cycle (Q days) 28 Sexually Active? Y Menses Monthly Y Date of Last Pap Smear Sexual Problems? N LMP Definite Obstetrics History GPAL:G 0 P 0 0 0 0 Past Encounters Encounter ID Performer Location Encounter Start Date Encounter Closed Date Diagnosis/Indication Diagnosis SNOMED-CT Code Diagnosis ICD10 Code Diagnosis Note [id number] KHANH Velez NP [facility] [address] [place] [address] 05/24/2018 10:53:35 05/24/2018 15:50:18 Left upper quadrant pain 600367014 R10.12 -Obtain labs Uterine leiomyoma 978693 05 D25.9 -F/u with [facility] DECORATOR at [facility] as scheduled tomorrow [id number] KHANH Velez NP [facility] [address] [place] [address] 06/03/2018 09:59:04 06/03/2018 11:58:38 Gynecologic examination 26227413 Z01.419 -Pap obtained [id number] Lesly Delacruz MD [facility] [address] [place] [address] 03/11/2019 15:33:19 03/14/2019 09:18:42 Menorrhagia 814140593 N92.0 Will refer to ObGyn since she will need further evaluation and testing. 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 [id number] Mohini Magana MA [facility] [address] [place] [address] 03/17/2019 12:45:14 03/28/2019 09:48:16 [id number] [facility] [address] [place] [address] 04/12/2019 16:17:32 04/13/2019 13:12:51 Trying to conceive 043500830 Z31.9 -unsuccess ful attempts to conceive since 2017-unlik ck ovulatory dysfunctio n, as is having monthly periods, positive OPKs, and with normal FSH/LH-lik ck structural etiology, given known history of uterine fibroids, s/p abdominal myomectomy 06/2018; large, bulky uterus on exam-recom mend HSG to evaluate uterine cavity; orders for [facility] & [facility] issued, financial assistance paperwork for both institutio ns given-robbie mmend SA for partner-андрей mcmanus to contact office once able to schedule HSG [id number] АНДРЕЙ XIE [facility] [address] [place] [address] 06/28/2024 12:08:46 06/28/2024 12:43:56 Obesity 083235639 E66.8 BMI 36.5discus sed increasing exercise and healthier food options, high protein, low fat diet Mass of neck 753011146 R 22.1 x3 yrs6 cm x 5 cm mass to L upper trapezius, fluctuant, non-TTP w/o erythemaor dered US neck Screening for malignant neoplasm of breast 016413377 Z12.39 due for mammo Screening for malignant neoplasm of cervix 852439553 Z12.4 refer to [facility] for pap Uterine leiomyoma 432360 05 D25.9 diagnosed2 010has had surgery 3 times for removalinf ertility issues Depression screening 171 221538 Z13.31 PHQ 2 [id number] АНДРЕЙ XIE [facility] [address] [place] [address] 07/26/2024 16:17:39 07/26/2024 16:43:54 Mass of neck 309534571 R22.1 07/26/24: US neck soft tissue 07/05/24- area of concern is normal subcutaneo us fat, no concerning mass or enlarged lymph nodesstate s that it is uncomforta ble and causes pulling sensation to neckreques ting surgery referral 06/28/24: x3 yrs6 cm x 5 cm mass to L upper trapezius, fluctuant, non-TTP w/o erythemaor dered US neck Screening for malignant neoplasm of breast 026638742 Z12.39 mammo scheduled in Oct Screening for malignant neoplasm of cervix 930437428 Z12.4 printed off referral and encouraged pt to call to schedule apptrefer to [facility] for pap Depression screening 171 193343 Z13.31 PHQ 0 Allergic rhinitis 048502 04 J30.9 sneezing, taking loratadine w/o reliefstar víctor zyrtec, helping some, still sneezingad d flonase Left sided chest pain 28 4785841 R07.9 x5 days, went to ED, told it was related to her fibroidsha s pain with sneezingta matilde tylenol and ibuprofenn o trauma or injuryPEx- nlmost likely musculoske letaltrial muscle relaxer, stretching , NSAIDSf/u in 1 wk if sx do not improve Influenza vaccination declined 186878603 Z28.21 Spasm of back muscles 20 7672246 M62.618 [id number] Perez Uriostegui MD [facility] [address] [place] [address] 08/11/2024 11:50:03 08/11/2024 14:50:23 Lipoma of shoulder 523457105 D17.22 patient with soft tissue mass c/w lipoma. Amenable to resection. Risks include bleeding, wound infection, and a slight risk of recurrence . Will proceed to the OR as soon as is convenient . Patient in agreement with the plan of care. [id number] ePrez Uriostegui MD [facility] [address] [place] [address] 10/06/2024 10:26:40 10/10/2024 09:52:36 Lipoma of shoulder 949207853 D17.22 s/p excision. patient likely had seroma that drained spontaneou sly. No signs of ongoing fluid collection or infection Postoperative visit 1836 30104 Z48.89 1) cleanse incision daily2) moisturize 3) sunscreen to incision when exposed4) return to office should a problem arise Health Concerns Section Related Observation LastModified by Organization Detai ls LastModified Time None Recorded Concern Status LastModified by Organization Details LastModified Time None Recorded Advance Directives Directive N: Payers Encounter Date Sequence Insurance Name Policy Number Policy Meneses Covered Member ID Meneses Member ID Guarantor Name 04/12/2019 1 *SELF PAY* Om otola A Soyoye 06/28/2024 1 [facility] (MEDICARE REPLACEMENT/AD VANTAGE - HMO) Omotola Soyoye [id number] Omotola A Soyoye 06/28/2024 2 [facility] ON OR AFTER 04/11/21 (MEDICAID REPLACEMENT - HMO) Omotola A Soyoye [id number] Omotola A Soyoye 07/26/2024 1 [facility] (MEDICARE REPLACEMENT/AD VANTAGE - HMO) Omotola Soyoye [id number] Omotola A Soyoye 07/26/2024 2 [facility] ON OR AFTER 04/11/21 (MEDICAID REPLACEMENT - HMO) Omotola A Soyoye [id number] Omotola A Soyoye 08/11/2024 1 [facility] ON OR AFTER 04/11/21 (MEDICAID REPLACEMENT - HMO) Omotola A Soyoye [id number] Omotola A Soyoye 10/06/2024 1 [facility] - DOS ON OR AFTER 21 (MEDICAID REPLACEMENT - HMO) Omotola A Soyoye [id number] Omotola A Soyoye Notes Date Note Type Note Provider Name and Address Organization Details Recorded Time 04/12/2019 text/html Ms. Hess is a 38yo G0 who presents for infertility evaluation. Patient reports unsuccessful attempts to conceive since 2016. States was found to have large uterine fibroids for which underwent myomectomy by Dr. Jacobs ([facility]) in June 2018. Has been engaging in timed intercourse since earlier this Spring without subsequent conception. Reports monthly periods, however feels as though they are prolonged since myomectomy - 10-12d as compared to 7d. States has been using OPK with positive results. Partner has children from prior relationship many years ago, however no recent SA. Was seen by PCP and underwent unremarkable endocrine labs (FSH, FSH, LH). Tony soriano, PA - [facility] 04/12/2019 19:46:56 06/28/2024 text/html Pt presents to establish care as a new patient. 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 C/o intermittent ankle swelling, worse with running on treadmill. C/o lump on the L side of her neck for 3 yrs. Reports that it has increased in size. Denies pain. States that she has difficulty losing weight despite walking daily and watching her fat intake. Denies fever, chills, chest pain, SOB, n/v/d, dizziness, weakness, or headaches. АНДРЕЙ XIE Attn: Accounting[address] [place], [address], [facility] - [facility] 06/30/2024 13:14:51 07/26/2024 text/html Pt presents for 1 mo f/u. States that she had US of her neck completed and is requesting surgery referral for fat removal. C/o sneezing, no relief with claritin. She switched to zyrtec and sneezing has improved, but still present. Pt's mammogram is scheduled in October. АНДРЕЙ XIE Attn: Accounting[address] [place], [address], [facility] - [facility] 07/28/2024 08:31:55 08/11/2024 text/html Patient with approximately 1-2 year history of swelling/mass of the left trapezius region. Growing gradually. Causes significant discomfort, mostly shoulder and neck pain. No prior history, no drainage, no skin changes. Ultrasound shows fatty tissue Perez Uriostegui MD [address], [place], [address], [place] - [place] 08/11/2024 12:13:11 10/06/2024 text/html Patient 2 weeks status post excision of lipoma left shoulder. Patient had mild contact dermatitis from bandage, complains drainage of straw-colored liquid several days ago, subjective fever, both which have resolved. Occasional soreness to the left arm. Pathology shows lipoma. Perez Uriostegui MD [address], [place], [address], [place] - [facility] 10/06/2024 10:53:16 OBGyn Episode No OBEpisode recorded.
--- OUTSIDE RECORDS SUMMARY | 2024-11-11 15:31 | XMS_ITS | Clinical Summary ---
Author Organization [facility] Administrative Offices Address [address] [place] [address] Care Team Providers Care Performance Architect Name Role Phone Unavailable Primary Care Provider Unavailabl e Allergies Active Allergy Reactions Criticality Noted Date Comments Apple Itching Low 06/22/2020 Hydroxychloroquine Hives,Itching High 03/02/2020 Nut Flavor Anaphylaxis High 06/03/2018 Shellfish Containing Products Anaphylaxis High 06/03 Medications ferrous sulfate 325 mg (65 mg iron) tablet 8 Active ascorbic acid (VITAMIN C ORAL) Take by mouth. Activ e PNV no.153/FA/om3/d colby/epa/fish ( GUMMIES ORAL) Take by mouth. A ctive cholecalciferol , vitamin D3, (VITAMIN D3 ORAL) Take by mouth. Activ e loratadine (CLARITIN) 10 mg tablet Take 10 mg by mouth daily. Active ibuprofen (MOTRIN) 600 mg tablet Take 1 Tablet (600 mg) by mouth every 6 hours as needed for Pain (For pain secondary to inflammation). 30 Tablet 1 0 Active L. acidophilus/L. rhamnosus (PROBIOTIC ORAL) Take by mouth. Activ e Active Problems Problem Noted Date Diagnosed Date S/P myomectomy 06/25/2020 Hard to intubate 05/17/2020 Intramural and subserous leiomyoma of uterus 03/2018 S/P exploratory laparotomy 06/17/2018 S/P myomectomy 06/17/2018 Abnormal uterine bleeding (AUB) 10/14/2017 Primary female infertility 10/14/2017 Abdominal pain 10/13/2017 Subserous leiomyoma of uterus Family History Medical History Relation Name Comments Breast Cancer Neg Hx Colon Cancer Neg Hx Ovarian Cancer Neg Hx Uterine Cancer Neg Hx Social History Tobacco Use Types Packs/Day Years Used Date Smoking Tobacco: Never Smokeless Tobacco: Never Alcohol Use Standard Drinks/Week Comments No 0 (1 standard drink = 0.6 oz pur e alcohol) Comments No Sex and Gender Information Value Date Recorded Sex Assigned at Not on file Legal Sex Female 9:36 AM CDT Gender Identity Not on file Sexual Orientation Not on file Occupation Industry Job Start Date Job End Date Student Not on file Not on file Not on file Last Filed Vital Signs Vital Sign Reading Time Taken Comments Blood Pressure 128/78 06/17/2022 1:28 PM CDT Pulse 72 06/26/2020 7:00 AM CDT Temperature 38.8 ??C (101.9 ??F) 05/27/2022 11:12 AM CDT Respiratory Rate 19 06/26/2020 7:00 AM CDT Oxygen Saturation 94% 06/26/2020 7:00 AM CDT Inhaled Oxygen Concentration - - Weight 103.9 kg (229 lb) 08/12/2022 8:20 AM CDT Height 177.8 cm (5' 10 ) 08/12/2022 8:20 AM CDT Body Mass Index 32.86 08/12/2022 8:20 AM CDT Plan of Treatment Health Maintenance Due Date Last Done Comments HEPATITIS B VACCINES (1 of 3 - 19+ 3-dose series) 1999 BREAST CANCER SCREENING 05/22/2023 05/22/2022 INFLUENZA VACCINE (#1) 2024 CERVICAL CANCER SCREENING 05/20/20252021, 06/12/2018 (Previously completed) DTAP/TDAP/TD VACCINES (2 - T d or Tdap) 02/14/2031 02/14/2021 HPV VACCINES Aged Out No longer eligi ble based on patient's age to complete this topic PNEUMOCOCCAL VACCINE 0-64 YEARS Aged Out No longer eligible b ased on patient's age to complete this topic Medical Devices Implanted Type Area Station Detective Device Identifier Shelf Expiration Date Model / Serial / Lot Barrier Interceed Adh 3x4in 4350 - [id number] Implanted:Qt y: 1 on 06/17/2018 by Austin Viramontes MD at [facility] Adhesion Barrier N/A: Pelvis [employer] [id number] 06/11/2022 4350 / / [id number] Barrier Interceed Adh 3x4in 4350 - [id number] Implanted:Qt y: 1 on 06/17/2018 by Austin Viramontes MD at [facility] [employer]hes[employer] Barrier N/A: Pelvis [employer] [id number] 06/11/2022 4350 / / [id number] Barrier Interceed Adh 3x4in 4350 - [id number] Implanted:Qt y: 1 on 05/17/2020 by Austin Viramontes MD at [facility] [employer] Barrier N/A: Abdomen [employer] [id number] 05/11/2024 4350 / / [id number] Barrier Interceed Adh 3x4in 4350 - [id number] Implanted:Qt y: 1 on 06/25/2020 by Austin Viramontes MD at [facility] [employer] Barrier N/A: Abdomen [employer] 09/10/2024 4350 / / [id number] Procedures Procedure Name Priority Date/Time Associated Diagnosis Comments MAMMO 3D FIGUEROA SCREEN BILAT W OR WO CAD Routine 05/22/2022 10:22 AM CDT Breast cancer screening by mammogram CERV/VAG CYTO AGE BASED SCREEN PAP Routine 05/20/2022 1:50 PM CDT Well woman exam with routine gynecological exam Screening for malignant neoplasm of cervix Special screening examination for human papillomavirus (HPV) from Last 3 Months or Most Recently Relevant to Health Maintenance Results * MAMMO SCRN BILAT 3D FIGUEROA W OR WO CAD (05/22/2022 10:22 AM CDT) Anatomical Region Laterality Modality Breast Bilateral Mammography 05/22/2022 10:2 6 AM CDT Impressions 05/22/2022 2:56 PM CDT IMPRESSION: ?? No mammographic evidence of malignancy in the bilateral breasts. Routine screening mammography is recommended in 1 year. OVERALL FINAL ASSESSMENT: ??BI-RADS CATEGORY 1 - Negative DICTATION LOCATION: [facility] Narrative 05/22/2022 2:56 PM CDT EXAMINATION: BILATERAL SCREENING DIGITAL MAMMOGRAPHY WITH TOMOSYNTHESIS AND CAD DATE: 05/22/2022 10:22 AM HISTORY: Baseline screening mammography. COMPARISON: None available. Baseline mammography. TECHNIQUE: A bilateral screening mammogram was performed. Low-dose full-field digital breast tomosynthesis examination was performed with 2D and 3D acquisitions. Examination is read in conjunction with computer aided detection. ?? BREAST COMPOSITION: The breasts are heterogeneously dense, which may obscure small masses. FINDINGS: There are no suspicious masses, suspicious calcifications, or other suspicious findings in either breast. Computer aided detection was used in the interpretation of this examination. Procedure Note Zackery Rangel MD - 05/22/2022 EXAMINATION: BILATERAL SCREENING DIGITAL MAMMOGRAPHY WITH TOMOSYNTHESIS AND CAD DATE: 05/22/2022 10:22 AM HISTORY: Baseline screening mammography. COMPARISON: None available. Baseline mammography. TECHNIQUE: A bilateral screening mammogram was performed. Low-dose full-field digital breast tomosynthesis examination was performed with 2D and 3D acquisitions. Examination is read in conjunction with computer aided detection. BREAST COMPOSITION: The breasts are heterogeneously dense, which may obscure small masses. FINDINGS: There are no suspicious masses, suspicious calcifications, or other suspicious findings in either breast. Computer aided detection was used in the interpretation of this examination. IMPRESSION: No mammographic evidence of malignancy in the bilateral breasts. Routine screening mammography is recommended in 1 year. OVERALL FINAL ASSESSMENT: BI-RADS CATEGORY 1 - Negative DICTATION LOCATION: [facility] Only Yy MAMMO ORDERABLES Final Res ult * CERV/VAG CYTO AGE BASED SCREEN PAP (05/20/2022 1:50 PM CDT) COMMENT (PAP): [facility] Comment: This order for age-based cervical cancer and STI screening follows ACOG guidelines(PB 168, 140, CNW559). See individual assays for performing site location. CLINICAL INFORMATION [facility] Comment:NO PAP ON FILE/HX OF FIBROIDS LAST MENSTRUAL PERIOD [facility] Comment:[id number] PREV PAP: [facility] Comment:INFORMATION NOT PROV IDED PREV BX: [facility] Comment:INFORMATION NOT PROV IDED SOURCE [facility] Comment:Endocervix ADEQUACY: [facility] Comment: Satisfactory for evaluation. Endocervical/transformation zone component absent. PAP INTERP [facility] Comment:Negative for intraep ithelial lesion or malignancy. COMMENT (PAP TEST) [facility] Comment: This Pap test has been evaluated with computer assisted technology. PROGRAMMER NUMERICAL CONTROL: Sona Maldonado Comment: TMK, CT(ASCP) CT screening location: [place] [address] [place] [address] EXPLANATORY NOTE [facility] Comment: EXPLANATORY NOTE: The Pap is a screening test for cervical cancer. It is not a diagnostic test and is subject to false negative and false positive results. It is most reliable when a satisfactory sample, regularly obtained, is submitted with relevant clinical findings and history, and when the Pap result is evaluated along with historic and current clinical information. HPV E6/E7 Not Detected Not Detected [facility] Comment: Methodology: Group Exercise Class Instructor-Mediated Amplification This assay detects E6/E7 viral messenger RNA (mRNA) from 14 high-risk HPV types (16,18,31,33,35,39,45,51,52,56,58,59,66,68). Cervical sources are required for HPV testing. If a vaginal source from a patient who has had a total hysterectomy with removal of cervix was submitted, please contact the testing laboratory for alternative testing options. For additional information, please refer to http://education.[employer]/faq/VYC262f5 (This link if provided for information/ educational purposes only.) Test Performed at: [facility] [id number] [place] ??[phone] Cecilio Wong D.O., MPH SL Genital SWAB OF ENDOCERVIX / Unknown 05/20/2022 1:50 PM CDT 05/20/2022 7:47 PM CDT Austin Viramontes MD PATHOLOGY/CYTOLOGY ORDERABLES Fi nal Result [facility] [phone] [facility] [address] [place] [phone] from Last 3 Months or Most Recently Relevant to Health Maintenance Insurance RX [employer] PLANS (INTERNAL) [facility] Internal [employer] Advance Directives For more information, please contact: [phone] * Full Code (Latest Code Status on File) Date Activated Date Inactivated Comments 06/25/2020 12:46 PM 06/26/2020 2:40 PM * Full Code Date Activated Date Inactivated Comments 06/25/2020 5:56 AM 06/25/2020 12:46 PM * Full Code Date Activated Date Inactivated Comments 05/17/2020 12:48 PM 05/18/2020 12:29 PM * Full Code Date Activated Date Inactivated Comments 05/17/2020 5:47 AM 05/17/2020 12:48 PM * Full Code Date Activated Date Inactivated Comments 06/17/2018 5:47 AM 06/17/2018 2:44 PM
--- OUTSIDE RECORDS SUMMARY | 2024-11-11 15:31 | XMS_ITS | Clinical Summary ---
Author Organization [facility] Address [address] [place] [address] Care Team Providers Care Sawmill Worker Name Role Phone Unknown, Provider Primary Care Provider Unavaila ble Source Comments [facility],non-owned Affiliates and Associated Physician Practices is amultiple site organization consisting of ambulatory clinics and hospital sitesin [place], [place], [place] and [place]. This disclosure is being madepursuant to the Care Everywhere program and may not contain all information available regarding this patient. Last updated 18.[facility] Allergies Active Allergy Reactions Criticality Noted Date Comments Apple Itching Low 06/22/2020 Chloroquine Itching 02/14/2021 Cannot sleep [place] Fruit Itching,Eye Itching 10/20/2024 Seasonal Eye Itching 10/20/2024 Shellfish Anaphylaxis High 06/03/2018 Tree Nuts Anaphylaxis,Itching High 06/03/2018 Medications * Be aware that medications may not be up to date on this document. Alwaysverify current medications with the patient. Medication Sig Dispensed Refills Start Date End Date Status ferrous sulfate 325 (65 FE) MG tablet Take 1 (one) tablet by mouth daily with breakfast Active Iron-Vitamins (GERITOL COMPLETE PO) Act hermelinda [place]-3 Fatty Acids (Fish Oil) 300 MG Take by mouth. Act hermelinda Active Problems No known active problems Encounters Date Type Department Care Team Description 10/20/2024 2:30 PM DIE CAST DIE MAKER Office Visit [facility] - Ophthalmology [address] [place] [phone] Jun Cronin MD Glaucoma suspect of both eyes (Primary Dx) 10/20/2024 2:20 PM DIE CAST DIE MAKER Clinical Support [facility] - Ophthalmology [address] [place] [phone] Jun Cronin MD Glaucoma suspect of both eyes (Primary Dx) 10/20/2024 2:15 PM DIE CAST DIE MAKER Clinical Support [facility] - Ophthalmology [address] [place] [phone] Jun Cronin MD Glaucoma suspect of both eyes (Primary Dx) 10/20/2024 Travel from Last 3 Months Immunizations Name Administration Dates Next Due TDAP (7yrs+) 02/14/2021 Social History Tobacco Use Types Packs/Day Years Used Date Smoking Tobacco: Never Assessed Sex and Gender Information Value Date Recorded Sex Assigned at Not on file Gender Identity Not on file Sexual Orientation Not on file Plan of Treatment Upcoming Encounters Date Type Department Care Team (Late st Contact Info) Description 04/19/2025 2:15 PM CDT Office Visit [facility] - Ophthalmology [address] [place] [phone] Jun Cronin MD [address] [place] [address] [place] [address] Health Maintenance Due Date Last Done Comments LIPID TESTING 1980 HIV SCREENING 1995 HEPATITIS C SCREENING 05/02/1998 HEPATITIS B VACCINE (1 of 3 - 19+ 3-dose series) 1999 MAMMOGRAM 05/22/2024 05/22/2022, 05/22/2022 COVID-19 VACCINE (1 - 2023-2 5 season) 2024 INFLUENZA VACCINE (#1) 2024 DEPRESSION SCREENING 10/12/2024 PAP SMEAR 09/13/2027 09/13/2024, 09/13/2024, 09/13/2024 ZOSTER VACCINE (1 of 2) 2030 DTAP/TDAP/TD VACCINES (2 - T d or Tdap) 02/14/2031 02/14/2021 HIB VACCINE Aged Out No longer eligi ble based on patient's age to complete this topic HPV VACCINE Aged Out No longer eligi ble based on patient's age to complete this topic MENINGOCOCCAL (Group B) VACCINE Aged Out No longer eligible b ased on patient's age to complete this topic MENINGOCOCCAL VACCINE Aged Out No shailesh edenilson eligible based on patient's age to complete this topic PNEUMOCOCCAL VACCINE Aged Out No long er eligible based on patient's age to complete this topic Procedures Procedure Name Priority Date/Time Associated Diagnosis Comments OPTIC NERVE ANALYSIS OCT Routine 10/20/2024 2:12 PM DIE CAST DIE MAKER Glaucoma suspect of both eyes TRAYLOR AUTO VISUAL FIELD EXTENDED Routine 10/20/2024 2:12 PM DIE CAST DIE MAKER Glaucoma suspect of both eyes EYE EXAM 08/17/2024 from Last 3 Months Results * OPTIC NERVE ANALYSIS OCT (10/20/2024 2:12 PM DIE CAST DIE MAKER) Anatomical Region Laterality Modality Head External-Camera Photography Jun Cronin MD OPHTHALMOLOGY SCHED ORD W PACS * TRAYLOR AUTO VISUAL FIELD EXTENDED (10/20/2024 2:12 PM DIE CAST DIE MAKER) Anatomical Region Laterality Modality Head External-Camera Photography Jun Cronin MD OPHTHALMOLOGY SCHED ORD W PACS * EYE EXAM (08/17/2024) Anatomical Region Laterality Modality Other Narrative 08/17/2024 Ordered by an unspecified provider. Scanned Document SCANNING ONLY from Last 3 Months Care Teams Sawmill Worker Relationship Specialty Start Date End Date Unknown, Provider PCP - General 10/20/24
--- OUTSIDE RECORDS SUMMARY | 2024-11-11 15:31 | XMS_ITS | Data Portability ---
Author Organization [facility] Address [address] [place] [address] Care Team Providers Care Firer Low Pressure Name Role Phone MADISON WRIGHT Primary Care Provider Assessment Encounter Date Assessment Date Assessment LastModified by Organization Details LastModified Time 09/13/2024 09/13/2024 Annual gynecological exam performed. Patient will come back in a year unless there are new symptoms. Not available 09/13/2024 16:17:22 Plan of Treatment Reminders Order Date Submit Date Provider Last Modified By Organization Details Last Modified Time Details Appointments None recorded. Lab hbcab (hepatitis B core Ab) igm, serum 2023 [facility] (Lab), [address], [place], [address], 4 18:19:51 HBsAg (hepatitis B surface Ag), serum 2023 [facility] (Lab), [address], [place], [address], 4 18:19:48 hepatitis C virus Ab, serum 2023 [facility] (Lab), [address], [place], [address], 4 18:19:49 HIV 1+2 AB + HIV 1 p24 Ag, qualitative immunoassay , serum 2023 [facility] (Lab), [address], [place], [address], 4 18:19:48 RPR (rapid plasma reagin), serum 2023 [facility] (Lab), [address], [place], [address], 4 18:19:51 anti-bell inocencia hormone (amh), serum 2023 024 [facility] (Lab), [address], [place], [address], 4 18:19:50 HbA1c (hemoglobin A1c), blood 2023 [facility] (Lab), [address], [place], [address], 4 18:19:51 TSH, serum or plasma 2023 024 [facility] (Lab), [address], [place], [address], 4 18:19:50 progesteron e, serum 2023 024 [facility] (Lab), [address], [place], [address], 4 18:19:49 FSH (follicle-s timulating hormone), serum 2023 024 [facility] (Lab), [address], [place], [address], 4 18:19:50 prolactin, serum 2023 024 [facility] (Lab), [address], [place], [address], 4 18:19:49 estradiol, serum 2023 [facility] (Lab), [address], [place], [address], 4 18:19:48 lh (luteinizin g hormone), serum 2023 [facility] (Lab), [address], [place], [address], 4 18:19:49 17-hydroxyp rogesterone , QN, serum 2023 024 [facility] (Lab), [address], [place], [address], 4 18:19:52 shbg (sex hormone-bin ding globulin), serum 2023 [facility] (Lab), [address], [place], [address], 4 18:19:51 Referral None recorded. Procedures None recorded. Surgeries None recorded. Imaging None recorded. Medication Orders None recorded. Patient TargetsNo targets recorded. Patient InstructionsNo instructions recorded. Reason for Referral None Reported. Results Created Date Observation Date Name Description Value Unit Range Abnormal Flag Note LastModifiedBy Organization Detail LastModifiedTime 09/13/20 24 09/13/2024 HIV 1/2 ANTIG EN/AN TIBOD Y, REFLE X CONFI RMATI ON HIV antigen/anti body Nonrea ctive nonrea ctive HIV-1 antig en and HIV-1 /HIV- 2 antib odies were not detec víctor. No labor atory evide nce of HIV infec tion. Not Available [facility] (Lab) [address], [place], [address], 09/19/2024 18:19:48 09/13/20 24 09/13/2024 HEPAT ITIS B SURFA CE ANTIG EN hepatitis B surface antigen Non-re active non-re active This assay was perfo rmed using [employer] n reage nts and test kits. Value s obtai kandi with other assay metho ds or kits canno t be used inter [facility] . Not Available [facility] (Lab) [address] [place], [address], 09/19/2024 18:19:48 09/13/20 24 09/13/2024 ESTRA DIOL estradiol 97.1 pg/mL This assay was perfo rmed using [employer] reage nts and test kits. Value s obtai kandi with other assay metho ds or kits canno t be used inter [facility] . Femal e Estra diol Range s: Folli cular phase 12.4- 233 pg/mL Ovula tion phase 41.0- 398 pg/mL Lutea l phase 22.3- 341 pg/mL Postm enopa usal <5-13 8 pg/mL Healt hy Pregn ant Women 1st Trime ster 154-3 243 pg/mL 2nd Trime ster 1561- 77377 pg/mL 3rd Trime ster 8525- >3000 0 pg/mL Not Available [facility] (Lab) [address] [place], [address], 09/19/2024 18:19:48 09/13/20 24 09/13/2024 PROGE STERO NE progesterone 0.21 NG/mL This assay was perfo rmed using [employer] reage nts and test kits. Value s obtai kandi with other assay metho ds or kits canno t be used inter [facility] . Femal e Proge stero ne Range s: Folli cular phase 0.06- 0.89 ng/mL Ovula tion phase 0.12- 12.00 ng/mL Lutea l phase 1.83- 23.90 ng/mL Postm enopa usal <0.05 -0.13 ng/mL Healt hy Pregn ant Women 1st Trime ster 11.0- 44.30 2nd Trime ster 25.40 -83.3 0 3rd Trime ster 58.70 -214. 00 Not Available [facility] (Lab) [address] [place], [address], 09/19/2024 18:19:49 09/13/20 24 09/13/2024 PROLA CTIN prolactin, total 13.80 NG/mL 4.79-2 3.30 This assay was perfo rmed using [employer] reage nts and test kits. Value s obtai kandi with other assay metho ds or kits canno t be used [facility] . Not Available [facility] (Lab) [address] [place], [address], 09/19/2024 18:19:49 09/13/20 24 09/13/2024 HEPAT ITIS C ANTIB CHELI SCREE N, REFLE X TO CONFI RMATI ON hepatitis C antibody Non-re active non-re active Antib odies to HCV Not Detec víctor, does not exclu de the possi bilit y of expos ure to HCV. Not Available [facility] (Lab) [address], [place], [address], 09/19/2024 18:19:49 09/13/20 24 09/13/2024 LH (LUTE NIZIN G HORMO NE) LH 8.8 mIU/m L This assay was perfo rmed using [employer] reage nts and test kits. Value s obtai kandi with other assay metho ds or kits canno t be used [facility] . Femal es Mid-F ollic ular: 2.4-1 2.6 mIU/m L Mid-C ycle: 14.0- 95.6 mIU/m L Mid-L uteal : 1.0-1 1.4 mIU/m L Postm enopa use: 7.7-5 8.5 mIU/m L Not Available [facility] (Lab) [address] [place], [address], 09/19/2024 18:19:49 09/13/20 24 09/13/2024 FSH FSH 7.4 mIU/m L This assay was perfo rmed using [employer] reage nts and test kits. Value s obtai kandi with other assay metho ds or kits canno t be used inter [facility] . Femal es Folli cular : 3.5-1 2.5 mIU/m L Ovula tion: 4.7-2 1.5 mIU/m L Lutea l: 1.7-7 .7 mIU/m L Postm enopa use: 25.8- 134.8 mIU/m L Not Available [facility] (Lab) [address] [place], [address], 09/19/2024 18:19:50 09/13/20 24 09/13/2024 ANTIM ULLER INOCENCIA HORMO NE (AMH) anti-mulleri an hormone (amh) 0.18 NG/mL Femal e Refer ence Range s 20-24 years : 1.22 - 11.70 ng/mL 25-29 years : 0.89 - 9.85 ng/mL 30-34 years : 0.58 - 8.13 ng/mL 35-39 years : 0.15 - 7.49 ng/mL 40-44 years : 0.03 - 5.47 ng/mL The follo wing resul ts were obtai kandi with the [employer] assay . Resul ts from assay s of other manuf actur es canno t be used inter [facility]. Not Available [facility] (Lab) [address] [place], [address], 09/19/2024 18:19:50 09/13/20 24 09/13/2024 TSH, REFLE X FREE T4 TSH 3.91 uIU/m L 0.30-5 .33 Not Available [facility] (Lab) [address] [place], [address], 09/19/2024 18:19:50 09/13/20 24 09/13/2024 HUMAN SEX HORMO NE CARLOTA NG GLOBU RAYMOND sex hormone binding globulin 44.7 nmole s/L 18.2-1 35.5 Not Available [facility] (Lab) [address] [place], [address], 09/19/2024 18:19:50 09/13/20 24 09/13/2024 HEMOG LOBIN A1C hemoglobin A1C 5.4 % 0-5.6 The Ameri can Diabe warren Assoc iatio n recom mends that a prima ry goal of thera py kya d be a HBA1C of < 7% and that physi cians shoul d reeva luate the treat ment regim en in patie nts with HBA1C value s consi stent ly > 8%. <5.7% Swathi l 5.7 - 6.4% Incre ased risk for diabe warren >=6.5 % Diagn ostic of diabe warren <7.0% Goal of thera py >8.0% Actio n sugge sted Not Available [facility] (Lab) [address], [place], [address], 09/19/2024 18:19:51 09/13/20 24 09/13/2024 RPR SCREE N, REFLE X TITER /CONF IRMAT ION RPR screen Nonrea ctive nonrea ctive Not Available [facility] (Lab) [address], [place], [address], 09/19/2024 18:19:51 09/13/20 24 09/13/2024 HEPAT ITIS B CORE, IGM hepatitis B core IgM antibody Non-re active non-re active IgM anti- HBc not detec víctor. Does not exclu de the possi bilit y of expos ure to or infec tion with HBV. Not Available [facility] (Lab) [address] [place], [address], 09/19/2024 18:19:51 09/13/20 24 09/13/2024 17-OH PROGE STERO NE 17-hydroxypr ogesterone, lc/MS/MS 23 NG/dL Adult Femal e Refer ence Range s for 17-Hy droxy proge stero ne: Pre-M enopa usal Mid Folli cular : 23-10 2 ng/dL Pre-M enopa usal Surge : 67-34 9 ng/dL Pre-M enopa usal Mid Lutea l: 139-4 31 ng/dL Postm enopa usal Phase : < or = 45 ng/dL Pregn nixon: First Trime ster: 78-45 7 ng/dL Secon d Trime ster: 90-35 7 ng/dL Third Trime ster: 144-5 78 ng/dL This test was devel oped and its sultana tical perfo rmanc e branden cteri stics have been deter mined by [facility]. It has not been clear ed or appro ember by FDA. This assay has been valid ated pursu ant to the CLIA regul ation s and is used for clini eden purpo ses. Perfo rming Organ izati on Infor matio n: Site ID: [id number] Name: [facility]/Jakob prabhjot [facility] [place] , Addre ss: [id number] [place] [place] [address] Direc tor: Janeth fournier MD,Ph D,PATRICK Not Available [facility] (Lab) [address], [place], [address], 09/19/2024 18:19:52 09/13/20 24 09/13/2024 IMAGE GUIDE D PAP AND HPV REGAR DLESS image guided Pap, HPV regardless of Pap result SEE RESULT S BELOW CASE REPOR T: Cytol ogy Gynec ologi eden Repor t Case: [id number] Autho jahaira schmitz Provi vish: Shira Arreguin, SMOKING PIPE LINER Colle cted: 09/13 1642 Order ing Locat ion: [place] [facility] Recei ember: 09/14 1222 First Scree n: Sharon Toscano ret, CT Rescr een: Karoline Casillas , CT Speci men: Scree dylan Pap - Image d, Cervi x STATE MENT OF ADEQU ACY: Satis facto ry for evalu ation Trans forma tion zone compo nent prese nt Parti ally obscu ring blood prese nt. ----- ----- ----- ----- ----- ----- ----- ----- ----- ----- ----- ----- ----- ----- ----- ----- ----- ---- FINAL DIAGN OSIS: Negat hermelinda for Intra epith elial Lesshandra albright or Diandra darden (NIL) . Elect amanuel blevins by Karoline Casillas , CT on 09/22 at 7:59 PM ----- ----- ----- ----- ----- ----- ----- ----- ----- ----- ----- ----- ----- ----- ----- ----- ----- ---- HPV RESUL TS: HPV mRNA E6/E7 : No HPV mRNA Detec víctor NOTE: This high risk HPV mRNA assay detec ts fourt een high- risk HPV types (16, 18, 31, 33, 35, 39, 45, 51, 52, 56, 58, 59, 66, 68) witho ut diffe renti ation . COMME NT: This speci men was revie wed by a Cytot echno logis t and/o r Patho logis t (as indic ated in this repor t) after evalu ation using the Thinp rep Imagi ng Syste m. CLINI EDEN INFOR MATIO N: Menst rual Statu s: LMP (if appli cable ): Clini eden Histo ry/Pr eviou s Pap: Type of Neopl timi (if appli cable ): Signi fican t Clini eden Findi ngs: Other Histo ry: Hormo jonnathan (if appli cable ): PAP EDUCA SONAL L NOTE: The Pap Test is a scree dylan test with an inher ent false negat hermelinda rate. Liqui d-bas ed sampl ing may decre ase, but will not elimi cheri, false negat hermelinda resul ts. A negat hermelinda resul t does not precl ude the prese nce and/o r devel opmen t of disea se, since the prese nce of abnor mal cells in the sampl e depen ds on the locat ion of the lesio n and sampl ing techn ique. Bina nued regul ar scree dylan is the best metho d of cance r preve ntion . If repor víctor cytol ogic findi ng do not corre late with physi eden and/o r histo rical findi ngs, furth er inves tigat ion is recom pita d, as clini gary crews nted. Not Available [facility] (Lab) [address], [place], [address], 09/22/2024 21:36:43 09/13/20 24 09/13/2024 TRICH OMONA S VAGIN EDDA (RRNA ) trichomonas vaginalis ribosomal RNA (rrna) Negati ve negati ve Not Available [facility] (Lab) [address], [place], [address], 09/22/2024 21:36:43 09/13/20 24 09/13/2024 CT/GC (NOAH) , THINP REP VIAL chlamydia trachomatis, PCR Negati ve negati ve Not Available [facility] (Lab) [address], [place], [address], 09/22/2024 21:36:44 09/13/20 24 09/13/2024 CT/GC (NOAH) , THINP REP VIAL neisseria gonorrhoeae, PCR Negati ve negati ve Not Available [facility] (Lab) [address], [place], [address], 09/22/2024 21:36:44 Result Notes None recorded. Procedures Surgical History Date Name Laterality Status Provider Name and Address Organization Details Recorded Time 05/22/20 22 Date of Last Mammogram completed Faith Do [facility] 09/13/2024 16:21:03 05/20/20 22 Date of Last Pap Smear completed Faith Do [facility] 09/13/2024 16:21:03 09/11/20 20 Myomectomy completed CARMEN Resendez [address], [place], [address], [facility] 09/12/2024 16:34:05 09/11/20 20 laparoscopy completed CARMEN Resendez [address], [place], [address], [facility] 09/12/2024 16:35:20 09/11/20 18 uterine myomectomy completed CARMEN Resendez [address], [place], [address], [facility] 09/12/2024 16:32:42 Appendectomy completed Faith Do [facility] 09/13/2024 16:21:34 Imaging Results None recorded. Procedure Notes None recorded. Medical Equipment None Reported. Allergies Allergen ID Allergen Name Allergen Category Reaction Reaction Severity Criticality Documentation Date Start Date Code Code System Note Provider Name and Address Organization Details Recorded Time 28706 hydroxych loroquine medicatio n Not available Not available Not available 09/13/2024 5521 RxNorm Faith Do [facility], [facility] 4 16:22:25 Medications Name Sig Start Date Stop Date Status Note LastModified by Organization Details LastModified Time fluticasone propionate 50 mcg/actuati on nasal spray,suspe nsion SHAKE LIQUID AND USE 1 SPRAY IN EACH NOSTRIL EVERY DAY DIRECTED 09/13 completed Not Available Not Available Not Available cyclobenzap rine 5 mg tablet TAKE 1 TABLET BY MOUTH TWICE DAILY 09/13 completed Not Available Not Available Not Available Vitals Date Recorded Body height Body mass index (BMI) Body weight Systolic blood pressure Diastolic blood pressure Provider Name and Address Organization Details Last Updated DateTime 09/13/2024 172.72 cm 38.5 kg/m2 529506.8 7 g 126 mm[Hg] 77 mm[Hg] Faith Do [facility] 4 16:20:54 Social History Question Answer Notes LastModified by Organizat ion Details LastModified Time Do You Have An Advance Directive? No Information n ot available 09/13/2024 What Is Your Level Of Alcohol Consumption? None Information not available 09/13/2024 Are You Blind Or Do You Have Difficulty Seeing? No Information not available 09/13/2024 What Is Your Level Of Caffeine Consumption? None Information not available 09/13/2024 How Much Tobacco Do You Chew? None Information not available 09/13/2024 In The 14 Days Before Symptom Onset, Have You Had Close Contact With A Laboratory-confirme d COVID-19 While That Case Was Ill? No Information n ot available 09/13/2024 In The 14 Days Before Symptom Onset, Have You Had Close Contact With A Person Who Is Under Investigation For COVID-19 While That Person Was Ill? No Information not available 09/13/2024 Have You Been To An Area Known To Be High Risk For COVID-19? No Information not available 09/13/2024 Are You Deaf Or Do You Have Serious Difficulty Hearing? No Information not available 09/13/2024 What Type Of Diet Are You Following? REGULAR Information n ot available 09/13/2024 What Is The Highest Grade Or Level Of School You Have Completed Or The Highest Degree You Have Received? [id number] Information not available 09/13/2024 Are There Any Guns Present In Your Home? Yes Information not available 09/13/2024 Do You Use Protection During Sex? No Information not available 09/13/2024 Do You Use Your Seat Belt Or Car Seat Routinely? Yes Information not available 09/13/2024 Do You Have Smoke And Carbon Monoxide Detectors In Your Home? Yes Information not available 09/13/2024 How Much Tobacco Do You Smoke? No Information not available 09/13/2024 Do You Feel Stressed (tense, Restless, Nervous, Or Anxious, Or Unable To Sleep At Night)? [id number] Information not available 09/13/2024 Do You Use Any Illicit Or Recreational Drugs? No Information not available 09/13/2024 Do You Use Sunscreen Routinely? No Information not available 09/13/2024 Have You Used IV Drugs? No Information not available 09/13/2024 Sex: Unknown Functional Status Question Answer Note LastModified by Organizat ion Details LastModified Time Are you able to walk? NOANTONINATWALYoko Information not available 09/13/2024 Mental Status None recorded. Family History Relationship Description Onset Age of this Age Resolved Age Notes LastModified by Organization Details LastModified Time Father No current problems or disability Not available 09/13 16:24:35 Mother No current problems or disability Not available 09/13 16:24:35 Medical History Condition Response Infertility Y Gynecological History Statement/Question Response Flow Moderate Date of Last Mammogram 05/22/2022 Date of LMP 08/08/2024 N Was last menstrual period normal N STIs/STDs N HPV Vaccine N Duration of Flow (days) 6 Current Control Method Fertility I ssues Are cycles usually normal Y Frequency of Cycle (Q days) 28 Sexually Active? Y Menses Monthly Y Age of first menstrual cycle 14 Date of Last Pap Smear 05/20/2022 Sexual Problems? N Desired Control Method Seeking Pre gnancy LMP Definite N Obstetrics History GPAL:G 1 P 0 0 1 0 Type Value Induced 1 Living 0 Total 1 Past Encounters Encounter ID Performer Location Encounter Start Date Encounter Closed Date Diagnosis/Indication Diagnosis SNOMED-CT Code Diagnosis ICD10 Code Diagnosis Note [id number] CARMEN Resendez [place] [address] [address] 09/13/2024 16:08:06 09/14/2024 11:57:12 Gynecologic examination 72915481 Z01.419 [facility] - TTCPap - updatedSTI screen - gc/ct/tric h testing added to pap, HIV/Hep B&C/Syphil is testing ordered per pt requestMam mogram - order givenColon cancer screening - n/aRoutine labs - PCPRTC in 1 yr or sooner if needed Suggested Calcium with Vitamin D daily. Patient advised to get an annual flu shot in the fall and she could obtain at local pharmacy. Also to obtain TDap vaccinatio n if you have not had one in the last 10 years. Recommend yearly mammograms . Encouraged monthly self breast exams. Encourage safe sexual practices, to use condoms and limit partners if not already in a monogamous relationsh ip. Engage in regular exercise. Avoid tobacco and illicit drugs. This lifestyle behavior pattern will lead to less health conditions and longer life span. If BMI greater than 25 dietary consult advised. All questions have been answered. Reproducti ve care management 753134945 Z31.9 Recommende d BABATUNDE referral given gyne hx and agereferra l placed - STL fertilityq uestions answered Venereal d isease screening 038574352 Z11.3 Sexually t ransmitted infectious disease 5360366 A64 Health Concerns Section Related Observation LastModified by Organization Detai ls LastModified Time None Recorded Concern Status LastModified by Organization Details LastModified Time None Recorded Advance Directives Directive N: Payers Encounter Date Sequence Insurance Name Policy Number Policy Meneses Covered Member ID Meneses Member ID Guarantor Name 09/13/2024 1 [facility] - DOS ON OR AFTER 21 (MEDICAID REPLACEMENT - HMO) [id number] Paulette Hess [id number] Paulette Hess Notes Date Note Type Note Provider Name and Address Organization Details Recorded Time 09/13/2024 text/html Annual GYNReport ed bypatient.Menstrua l cycle:Normal menses Urinary symptoms:No hematuria; No incontinence Vulva:No genital lesion Vagina:Normal vaginal discharge Breast:No breast pain; No breast lump; No nipple discharge Current Contraception:Yamilex h control not practiced Sexual complaints:No sexual complaints; No pain during intercourse; Normal libido Menopausal Symptoms:No menopausal symptoms; Normal vaginal lubrication Psychological symptoms:No depression; No anxiety; No PMDD Preventive measures:Encourage self breast examination; Encourage regular exercise; Encourage no tobacco use; Encourage regular mammograms starting age 40Notes:44yo wweBC - none, TTC x 7 yearsh/o myomectomy x 2, previously followed with fertility clinic - wants to discuss fertility options todaylast pap 2021 - normal per ptmammogram last 2021 CARMEN Resendez [address], [place], [address], [place] [facility] 09/14/2024 11:25:23 OBGyn Episode Ob Episode Information Episode Created Date Number of Fetuses Patient Bloodtype Patient rh Status Prepregnancy Weight lbs Domestic Partner Domestic Partner Phone Father Name Dock Pumper Status 09/13/20 24 1 CLOSED Fetus Data First Name Last Name Admitted to NICU Weight (g) Sex Living Outcome Pediatric Complications Fetus ID Race Codes Race Delivery Type , Induced [id number] James Calculation Initial James Date Initial Exam Date Initial Exam Provider Initial Ultrasound Date Last Menstrual Period Date Ultra Sound Weeks Gestation 0 Eighteen To Twenty Week James Update Ultra Sound Date Fundal Height At Umbil Quickening Date Ultra Sound Latest Weeks Gestation Final James Confirmed By Final James Confirmed Date Final James Date Ultra Sound Latest Days Gestation 0 0 Menstrual History Last Menstrual Date Menses Monthly On Bcp Conception Prior Menses Frequency Hcg Plus Date Menarche Onset Age Delivery Information Delivery Date Delivery Type Labor Anesthesia Weeks Gestation Incision Type Labor Labor Length Hrs Delivered By Post Complications Tubal Sterilization Discharge Date Comments 8 Discharge Information Feeding Method Contraceptive Method Maternal HG B and HCT Levels
--- OUTSIDE RECORDS SUMMARY | 2024-11-11 15:31 | XMS_ITS | Patient Health Summary ---
Author Organization [facility] Address [address] [place] [address] Care Team Providers Care Universal Grinder Tool Name Role Phone Unknown, Provider Primary Care Provider Unavaila ble Note from [facility],non-owned Affiliates and Associated Physician Practices is amultiple site organization consisting of ambulatory clinics and hospital sitesin [place], [place], [place] and [place]. This disclosure is being madepursuant to the Care Everywhere program and may not contain all information available regarding this patient. Last updated 18.[facility] Allergies * Apple(Itching) -Low Criticality * Chloroquine(Itching) * [place] Fruit(Itching,Eye Itching) * Seasonal(Eye Itching) * Shellfish(Anaphylaxis) -High Criticality * Tree Nuts(Anaphylaxis,Itching) -High Criticality Medications * Be aware that medications may not be up to date on this document. Alwaysverify current medications with the patient. * ferrous sulfate 325 (65 FE) MG tablet Take 1 (one) tablet by mouth daily with breakfast * Iron-Vitamins (GERITOL COMPLETE PO) * [place]-3 Fatty Acids (Fish Oil) 300 MG Take by mouth. Active Problems No known active problems Immunizations * TDAP (7yrs+)(Given 02/14/2021) Social History Tobacco Use Types Packs/Day Years Used Date Smoking Tobacco: Never Assessed Sex and Gender Information Value Date Recorded Sex Assigned at Not on file Gender Identity Not on file Sexual Orientation Not on file Procedures * OPTIC NERVE ANALYSIS OCT(Performed 10/20/2024) Performed for Glaucoma suspect of both eyes * TRAYLOR AUTO VISUAL FIELD EXTENDED(Performed 10/20/2024) Performed for Glaucoma suspect of both eyes * EYE EXAM(Performed 08/17/2024) Results * OPTIC NERVE ANALYSIS OCT (10/20/2024 2:12 PM WIRE FRAME MAKER) Anatomical Region Laterality Modality Head External-Camera Photography Jun Cronin MD OPHTHALMOLOGY SCHED ORD W PACS * TRAYLOR AUTO VISUAL FIELD EXTENDED (10/20/2024 2:12 PM WIRE FRAME MAKER) Anatomical Region Laterality Modality Head External-Camera Photography Jun Cronin MD OPHTHALMOLOGY SCHED ORD W PACS * EYE EXAM (08/17/2024) Anatomical Region Laterality Modality Other Narrative 08/17/2024 Ordered by an unspecified provider. Scanned Document SCANNING ONLY Care Teams Universal Grinder Tool Relationship Specialty Start Date End Date Unknown, Provider PCP - General 10/20/24
--- OUTSIDE RECORDS SUMMARY | 2024-11-11 15:31 | XMS_ITS | Referral Summary ---
Author Organization [facility] Address [address] [address] Care Team Providers Care Corporate Aircraft Mechanic Name Role Phone Unknown, Provider Primary Care Provider Unavaila ble Source Comments [facility],non-owned Affiliates and Associated Physician Practices is amultiple site organization consisting of ambulatory clinics and hospital sitesin [place], [place], [place] and [place]. This disclosure is being madepursuant to the Care Everywhere program and may not contain all information available regarding this patient. Last updated 18.[facility] Encounters Date Type Department Care Team Description 10/20/2024 2:20 PM RUCHING MACHINE OPERATOR Clinical Support [facility] - Ophthalmology [address] [place] [phone] Jun Cronin MD Glaucoma suspect of both eyes (Primary Dx) 10/20/2024 2:15 PM RUCHING MACHINE OPERATOR Clinical Support [facility] - Ophthalmology [address] [place] [phone] Jun Cronin MD Glaucoma suspect of both eyes (Primary Dx) 10/20/2024 Travel 10/20/2024 2:30 PM RUCHING MACHINE OPERATOR Office Visit [facility] - Ophthalmology [address] [place] [phone] Jun Cronin MD Glaucoma suspect of both eyes (Primary Dx) from Last 3 Months Allergies Active Allergy Reactions Criticality Noted Date Comments Apple Itching Low 06/22/2020 Chloroquine Itching 02/14/2021 Cannot sleep [place] Fruit Itching,Eye Itching 10/20/2024 Seasonal Eye Itching [...] Active Iron-Vitamins (GERITOL COMPLETE PO) Act hermelinda [place]-3 Fatty Acids (Fish Oil) 300 MG Take by mouth. Act hermelinda Active Problems No known active problems Immunizations Name Administration Dates Next Due TDAP [...] Description 04/19/2025 2:15 PM CDT Office Visit [facility] - Ophthalmology [address] [place] [phone] Jun Cronin MD [address] [place] [address] DEPT [place] [phone] Procedures Procedure Name Priority Date/Time Associated Diagnosis Comments OPTIC NERVE ANALYSIS OCT Routine 10/20/2024 2:12 PM RUCHING MACHINE OPERATOR Glaucoma suspect of both eyes TRAYLOR AUTO VISUAL FIELD EXTENDED Routine 10/20/2024 2:12 PM RUCHING MACHINE OPERATOR Glaucoma suspect of both eyes EYE EXAM 08/17/2024 from Last 3 Months Results * OPTIC NERVE ANALYSIS OCT (10/20/2024 2:12 PM RUCHING MACHINE OPERATOR) Anatomical Region Laterality Modality Head External-Camera Photography Jun Cronin MD OPHTHALMOLOGY SCHED ORD W PACS * TRAYLOR AUTO VISUAL FIELD EXTENDED (10/20/2024 2:12 PM RUCHING MACHINE OPERATOR) Anatomical Region Laterality Modality Head External-Camera Photography Jun Cronin MD OPHTHALMOLOGY SCHED ORD W PACS * EYE EXAM (08/17/2024) Anatomical Region Laterality Modality Other Narrative 08/17/2024 Ordered by an unspecified provider. Scanned Document SCANNING ONLY from Last 3 Months Care Teams Corporate Aircraft Mechanic Relationship Specialty Start Date End Date Unknown, Provider PCP - General 10/20/24
== END 2024-11-11 15:28 | disposition home or self-care (01) ==
PROVIDERS: PCP Physician Assistant; Visit Provider Physician Assistant
DX: Z12.31 Encounter for screening mammogram for malignant neoplasm of breast (principal)
CPT/HCPCS: 77063; 77067